=== PATIENT | female | born 1985 | race American Indian/Alaskan Native ===

== ENCOUNTER 2017-05-30 23:03 | Emergency (ER) | payer OTHER ==
[2017-05-31 00:38] LABS: Basophils % (Auto) 0.3 % (0.0-1.8); Eosinophils % (Auto) 1.2 % (0.0-4.3); Hematocrit 37.2 % (30.3-42.9); Hemoglobin 11.6 gm/dl (10.1-14.3); Mean Corpuscular HGB Conc 31 % (30-34); Platelet Count 235 K/mm3 (140-440); Red Blood Count 5.41 M/mm3 (3.65-5.03); Red Cell Distribution Width 16.3 % (13.2-15.2); White Blood Count 7.6 K/mm3 (4.5-11.0)
[2017-05-31 00:40] LABS: Mean Corpuscular Hemoglobin 22 pg (28-32); Mean Corpuscular Volume 69 fl (79-97)
[2017-05-31 00:57] LABS: Anion Gap 21 mmol/L; BUN/Creatinine Ratio 11.66; Blood Urea Nitrogen 7 mg/dL (7-17); Calcium 9.3 mg/dL (8.4-10.2); Carbon Dioxide 23 mmol/L (22-30); Chloride 101.2 mmol/L (98-107); Glucose 94 mg/dL (65-100); Potassium 3.7 mmol/L (3.6-5.0); Sodium 141 mmol/L (137-145)
[2017-05-31 03:41] VITALS: BP 183/96
--- NOTE | 2017-06-02 00:28 | ED Elopement Review ---
ED Pt Elopement review - Results review Lab results: Laboratory Tests 05/31/17 05/31/17 05/31/17 00:20 00:20 00:20 WBC 7.6 RBC 5.41 H Hgb 11.6 Hct 37.2 MCV 69 L MCH 22 L MCHC 31 RDW 16.3 H Plt Count 235 Lymph % (Auto) 38.6 H O'Brien % (Auto) 5.4 Eos % (Auto) 1.2 Baso % (Auto) 0.3 Lymph # 2.9 O'Brien # 0.4 Eos # 0.1 Baso # 0.0 Seg Neutrophils % 54.5 Seg Neutrophils # 4.1 Sodium 141 Potassium 3.7 Chloride 101.2 Carbon Dioxide 23 Anion Gap 21 BUN 7 Creatinine 0.6 L Estimated GFR > 60 BUN/Creatinine Ratio 11.66 Glucose 94 Calcium 9.3 HCG, Qual Negative - Call Back decision Pt Call Back Decision: Pt to F/U with PMD
== END 2017-05-31 05:03 | disposition left against medical advice (07) ==
LOC: ED 23:03
DX: R42 Dizziness and giddiness (principal); Z53.21 Procedure and treatment not carried out due to patient leaving prior to being seen by health care provider
CPT/HCPCS: 36415; 80048; 84703; 85025; 93005; 93010

== ENCOUNTER 2019-07-01 16:09 | Emergency (ER) | payer OTHER ==
[2019-07-01 18:15] LABS: Hematocrit 39.5 % (30.3-42.9); Hemoglobin 12.9 gm/dl (10.1-14.3); Mean Corpuscular HGB Conc 33 % (30-34); Platelet Count 259 K/mm3 (140-440); Red Blood Count 5.72 M/mm3 (3.65-5.03); Red Cell Distribution Width 16.7 % (13.2-15.2)
[2019-07-01 18:28] LABS: Mean Corpuscular Volume 69 fl (79-97)
[2019-07-01 18:29] LABS: Alanine Aminotransferase 19 units/L (7-56); Albumin 4.7 g/dL (3.9-5); BUN/Creatinine Ratio 25; Blood Urea Nitrogen 10 mg/dL (7-17); Calcium 9.6 mg/dL (8.4-10.2); Hemolysis Index 29
[2019-07-01 19:23] LABS: Bilirubin,Urine NEG (Negative); Blood,Urine NEG (Negative); Color,Urine Yellow (Yellow); Mucus,Urine FEW /HPF; Urobilinogen,Urine < 2.0 mg/dL (<2.0)
[2019-07-01] MEDS ORDERED: diphenhydrAMINE 50 MG/ML VIAL IV ONE (20:37)
[2019-07-01] MEDS ORDERED: ONDANSETRON 4 MG/2 ML INJ IV ONE (20:37)
[2019-07-01] MEDS ORDERED: SODIUM CHLORIDE 0.9% 1000 ML 1,000 ML IV ONE (20:37)
[2019-07-01] MEDS ORDERED: METOCLOPRAMIDE 10 MG/2 ML INJ IV ONE (20:37)
[2019-07-01 21:29] LABS: Band Neutrophils # (Manual) 0.1 K/mm3; Eosinophils % (Manual) 0 % (0.0-4.3); Hypochromasia 1+; Total Cells Counted 100
[2019-07-01 21:30] LABS: Poikilocytosis Few
[2019-07-01] MEDS ORDERED: HALOPERIDOL LACTATE 5 MG/1 ML INJ IM ONE (22:15)
--- NOTE | 2019-07-01 22:25 | Emergency Department Report ---
ED General Adult HPI - General Chief complaint: Nausea/Vomiting/Diarrhea Stated complaint: VOMITING X3DAYS Time Seen by Provider: 07/01/19 20:19 Source: patient Mode of arrival: Ambulatory Limitations: No Limitations - History of Present Illness Initial comments: The patient presents to the emergency department with a chief complaint of nausea and vomiting for the last 2-3 months that has gotten worse over the last [address] Wright as a customer success associate and was told to come to the ED per to patient for further evaluation and GI workup. Patient states she just recently established a relationship with her customer success associate has not had any procedures done yet. Patient is on Reglan at home to no avail. Patient denies abdominal pain, shortness of breath, or chest pain. -: Gradual Severity scale (0 -10): 0 Consistency: constant Improves with: none Worsens with: none Associated Symptoms: denies other symptoms Treatments Prior to Arrival: none - Related Data Home Medications Medication Instructions Recorded Confirmed Last Taken Methyldopa [Aldomet] 250 mg PO QDAY 12/05/14 12/05/14 12/05/14 08:00 Previous Rx's Medication Instructions Recorded Last Taken Type glyBURIDE [Diabeta] 10 mg PO BID #120 tablet 06/14/14 12/05/14 08:00 Rx metFORMIN [Glucophage] 1,000 mg PO BID #120 tablet 06/14/14 12/05/14 08:00 Rx Promethazine /Codeine 5 ml PO Q6H PRN #50 ml 12/05/14 Unknown Rx [Phenergan/Codeine 6.25-10 mg/5 ml] Ondansetron [Zofran Odt] 4 mg PO Q4HR PRN #20 tab.rapdis 07/01/19 Unknown Rx Promethazine [Phenergan TAB] 25 mg PO Q6HR PRN #20 tab 07/01/19 Unknown Rx Allergies Allergy/AdvReac Type Severity Reaction Status Date / Time No Known Allergies Allergy Verified 12/05/14 13:51 ED Review of Systems ROS: Stated complaint: VOMITING X3DAYS Other details as noted in HPI Comment: All other systems reviewed and negative Constitutional: denies: chills, fever Eyes: denies: eye pain, eye discharge, vision change ENT: denies: ear pain, throat pain Respiratory: denies: cough, shortness of breath, wheezing Cardiovascular: denies: chest pain, palpitations Endocrine: no symptoms reported Gastrointestinal: denies: abdominal pain, nausea, diarrhea Genitourinary: denies: urgency, dysuria, discharge Musculoskeletal: denies: back pain, joint swelling, arthralgia Skin: denies: rash, lesions Neurological: denies: headache, weakness, paresthesias Psychiatric: denies: anxiety, depression Hematological/Lymphatic: denies: easy bleeding, easy bruising ED Past Medical Hx - Past Medical History Hx Hypertension: Yes Hx Diabetes: Yes Additional medical history: PCOS - Surgical History Additional Surgical History: tonsillectomy - Social History Smoking Status: Never Smoker Substance Use Type: Marijuana - Medications Home Medications: Home Medications Medication Instructions Recorded Confirmed Last Taken Type glyBURIDE [Diabeta] 10 mg PO BID #120 tablet 06/14/14 12/05/14 12/05/14 08:00 Rx metFORMIN [Glucophage] 1,000 mg PO BID #120 tablet 06/14/14 12/05/14 12/05/14 08:00 Rx Methyldopa [Aldomet] 250 mg PO QDAY 12/05/14 12/05/14 12/05/14 08:00 History Promethazine /Codeine 5 ml PO Q6H PRN #50 ml 12/05/14 Unknown Rx [Phenergan/Codeine 6.25-10 mg/5 ml] Ondansetron [Zofran Odt] 4 mg PO Q4HR PRN #20 tab.rapdis 07/01/19 Unknown Rx Promethazine [Phenergan TAB] 25 mg PO Q6HR PRN #20 tab 07/01/19 Unknown Rx ED Physical Exam - General Limitations: No Limitations General appearance: alert, in no apparent distress - Head Head exam: Present: atraumatic, normocephalic - Eye Eye exam: Present: normal appearance, PERRL, EOMI - ENT ENT exam: Present: mucous membranes moist - Neck Neck exam: Present: normal inspection - Respiratory Respiratory exam: Present: normal lung sounds bilaterally. Absent: respiratory distress - Cardiovascular Cardiovascular Exam: Present: regular rate, normal rhythm. Absent: systolic murmur, diastolic murmur, rubs, gallop - GI/Abdominal GI/Abdominal exam: Present: soft, normal bowel sounds. Absent: distended, tenderness - Extremities Exam Extremities exam: Present: normal inspection - Back Exam Back exam: Present: normal inspection - Neurological Exam Neurological exam: Present: alert, oriented X3, CN II-XII intact. Absent: motor sensory deficit - Psychiatric Psychiatric exam: Present: normal affect, normal mood - Skin Skin exam: Present: warm, dry, intact, normal color. Absent: rash ED Course Vital Signs 07/01/19 07/01/19 07/01/19 16:22 16:46 19:34 Temperature 98.3 F 98.3 F Pulse Rate 85 95 H Respiratory 20 20 Rate Blood Pressure 198/120 222/109 Blood Pressure 198/120 [Right] O2 Sat by Pulse 95 98 Oximetry 07/01/19 07/01/19 07/01/19 20:30 20:45 21:30 Temperature 98.3 F Pulse Rate 88 89 94 H Respiratory 22 25 H 26 H Rate Blood Pressure 173/87 166/97 Blood Pressure 214/110 [Right] O2 Sat by Pulse 99 100 100 Oximetry ED Medical Decision Making - Lab Data Result diagrams: 07/01/19 18:01 07/01/19 18:01 Lab Results 07/01/19 07/01/19 07/01/19 Range/Units 16:35 18:01 18:01 WBC 10.7 (4.5-11.0) K/mm3 RBC 5.72 H (3.65-5.03) M/mm3 Hgb 12.9 (10.1-14.3) gm/dl Hct 39.5 (30.3-42.9) % MCV 69 L (79-97) fl MCH 23 L (28-32) pg MCHC 33 (30-34) % RDW 16.7 H (13.2-15.2) % Plt Count 259 (140-440) K/mm3 Add Manual Diff Complete Total Counted 100 Seg Neutrophils % Pedigree Researcher Seg Neuts % (Manual) 90.0 H (40.0-70.0) % Band Neutrophils % 1.0 % Lymphocytes % (Manual) 7.0 L (13.4-35.0) % Reactive Lymphs % (Man) 0 % Monocytes % (Manual) 1.0 (0.0-7.3) % Eosinophils % (Manual) 0 (0.0-4.3) % Basophils % (Manual) 1.0 (0.0-1.8) % Metamyelocytes % 0 % Myelocytes % 0 % Promyelocytes % 0 % Blast Cells % 0 % Nucleated RBC % Not Reportable Seg Neutrophils # Man 9.6 H (1.8-7.7) K/mm3 Band Neutrophils # 0.1 K/mm3 Lymphocytes # (Manual) 0.7 L (1.2-5.4) K/mm3 Abs React Lymphs (Man) 0.0 K/mm3 Monocytes # (Manual) 0.1 (0.0-0.8) K/mm3 Eosinophils # (Manual) 0.0 (0.0-0.4) K/mm3 Basophils # (Manual) 0.1 (0.0-0.1) K/mm3 Metamyelocytes # 0.0 K/mm3 Myelocytes # 0.0 K/mm3 Promyelocytes # 0.0 K/mm3 Blast Cells # 0.0 K/mm3 WBC Morphology Not Reportable Hypersegmented Neuts Not Reportable Hyposegmented Neuts Not Reportable Hypogranular Neuts Not Reportable Smudge Cells Not Reportable Toxic Granulation Not Reportable Toxic Vacuolation Not Reportable Dohle Bodies Not Reportable Pelger-Huet Anomaly Not Reportable Heike Rods Not Reportable Platelet Estimate Appears normal Clumped Platelets Not Reportable Plt Clumps, EDTA Not Reportable Large Platelets Not Reportable Giant Platelets Not Reportable Platelet Satelliting Not Reportable Plt Morphology Comment Not Reportable RBC Morphology Not Reportable Dimorphic RBCs Not Reportable Polychromasia Not Reportable Hypochromasia 1+ Poikilocytosis Few Anisocytosis Not Reportable Microcytosis 2+ Macrocytosis Not Reportable Spherocytes Not Reportable Pappenheimer Bodies Not Reportable Sickle Cells Not Reportable Target Cells Not Reportable Tear Drop Cells Not Reportable Ovalocytes Not Reportable Helmet Cells Not Reportable Ashraf-Chloride Bodies Not Reportable [place] Rings Not Reportable [place] Cells Not Reportable Bite Cells Not Reportable Crenated Cell Not Reportable Elliptocytes Not Reportable Acanthocytes (Spur) Not Reportable Rouleaux Not Reportable Hemoglobin C Crystals Not Reportable Schistocytes Not Reportable Malaria parasites Not Reportable Slava Bodies Not Reportable Hem Pathologist Commnt No Sodium 139 (137-145) mmol/L Potassium 4.8 (3.6-5.0) mmol/L Chloride 96.5 L (98-107) mmol/L Carbon Dioxide 22 (22-30) mmol/L Anion Gap 25 mmol/L BUN 10 (7-17) mg/dL Creatinine 0.4 L (0.7-1.2) mg/dL Estimated GFR > 60 ml/min BUN/Creatinine Ratio 25 % Glucose 360 H (65-100) mg/dL POC Glucose 362 H (70-105) Calcium 9.6 (8.4-10.2) mg/dL Total Bilirubin 1.00 (0.1-1.2) mg/dL AST 14 (5-40) units/L ALT 19 (7-56) units/L Alkaline Phosphatase 104 (35-129) units/L Total Protein 8.5 H (6.3-8.2) g/dL Albumin 4.7 (3.9-5) g/dL Albumin/Globulin Ratio 1.2 % Lipase 8 L (13-60) units/L HCG, Qual (Negative) Urine Color (Yellow) Urine Turbidity (Clear) Urine pH (5.0-7.0) Ur Specific [place] (1.003-1.030) Urine Protein (Negative) mg/dL Urine Glucose (UA) (Negative) mg/dL Urine Ketones (Negative) mg/dL Urine Blood (Negative) Urine Nitrite (Negative) Urine Bilirubin (Negative) Urine Urobilinogen (<2.0) mg/dL Ur Leukocyte Esterase (Negative) Urine WBC (Auto) (0.0-6.0) /HPF Urine RBC (Auto) (0.0-6.0) /HPF U Epithel Cells (Auto) (0-13.0) /HPF Urine Mucus /HPF 07/01/19 07/01/19 07/01/19 Range/Units 18:01 21:06 Unknown WBC (4.5-11.0) K/mm3 RBC (3.65-5.03) M/mm3 Hgb (10.1-14.3) gm/dl Hct (30.3-42.9) % MCV (79-97) fl MCH (28-32) pg MCHC (30-34) % RDW (13.2-15.2) % Plt Count (140-440) K/mm3 Add Manual Diff Total Counted Seg Neutrophils % Seg Neuts % (Manual) (40.0-70.0) % Band Neutrophils % % Lymphocytes % (Manual) (13.4-35.0) % Reactive Lymphs % (Man) % Monocytes % (Manual) (0.0-7.3) % Eosinophils % (Manual) (0.0-4.3) % Basophils % (Manual) (0.0-1.8) % Metamyelocytes % % Myelocytes % % Promyelocytes % % Blast Cells % % Nucleated RBC % Seg Neutrophils # Man (1.8-7.7) K/mm3 Band Neutrophils # K/mm3 Lymphocytes # (Manual) (1.2-5.4) K/mm3 Abs React Lymphs (Man) K/mm3 Monocytes # (Manual) (0.0-0.8) K/mm3 Eosinophils # (Manual) (0.0-0.4) K/mm3 Basophils # (Manual) (0.0-0.1) K/mm3 Metamyelocytes # K/mm3 Myelocytes # K/mm3 Promyelocytes # K/mm3 Blast Cells # K/mm3 WBC Morphology Hypersegmented Neuts Hyposegmented Neuts Hypogranular Neuts Smudge Cells Toxic Granulation Toxic Vacuolation Dohle Bodies Pelger-Huet Anomaly Heike Rods Platelet Estimate Clumped Platelets Plt Clumps, EDTA Large Platelets Giant Platelets Platelet Satelliting Plt Morphology Comment RBC Morphology Dimorphic RBCs Polychromasia Hypochromasia Poikilocytosis Anisocytosis Microcytosis Macrocytosis Spherocytes Pappenheimer Bodies Sickle Cells Target Cells Tear Drop Cells Ovalocytes Helmet Cells Ashraf-Chloride Bodies [place] Rings [place] Cells Bite Cells Crenated Cell Elliptocytes Acanthocytes (Spur) Rouleaux Hemoglobin C Crystals Schistocytes Malaria parasites Slava Bodies Hem Pathologist Commnt Sodium (137-145) mmol/L Potassium (3.6-5.0) mmol/L Chloride (98-107) mmol/L Carbon Dioxide (22-30) mmol/L Anion Gap mmol/L BUN (7-17) mg/dL Creatinine (0.7-1.2) mg/dL Estimated GFR ml/min BUN/Creatinine Ratio % Glucose (65-100) mg/dL POC Glucose 337 H (70-105) Calcium (8.4-10.2) mg/dL Total Bilirubin (0.1-1.2) mg/dL AST (5-40) units/L ALT (7-56) units/L Alkaline Phosphatase (35-129) units/L Total Protein (6.3-8.2) g/dL Albumin (3.9-5) g/dL Albumin/Globulin Ratio % Lipase (13-60) units/L HCG, Qual Negative (Negative) Urine Color Yellow (Yellow) Urine Turbidity Clear (Clear) Urine pH 6.0 (5.0-7.0) Ur Specific [place] 1.036 H (1.003-1.030) Urine Protein 100 mg/dl (Negative) mg/dL Urine Glucose (UA) >=500 (Negative) mg/dL Urine Ketones 80 (Negative) mg/dL Urine Blood Neg (Negative) Urine Nitrite Neg (Negative) Urine Bilirubin Neg (Negative) Urine Urobilinogen < 2.0 (<2.0) mg/dL Ur Leukocyte Esterase Neg (Negative) Urine WBC (Auto) 1.0 (0.0-6.0) /HPF Urine RBC (Auto) 1.0 (0.0-6.0) /HPF U Epithel Cells (Auto) 1.0 (0-13.0) /HPF Urine Mucus Few /HPF - Radiology Data Radiology results: report reviewed - Medical Decision Making Discussed results with patient sx improved after [facility] Critical care attestation.: If time is entered above; I have spent that time in minutes in the direct care of this critically ill patient, excluding procedure time. ED Disposition Clinical Impression: Nausea & vomiting Disposition: DC-01 TO HOME OR SELFCARE Is pt being admited?: No Does the pt Need Aspirin: No Condition: Stable Instructions: Acute Nausea and Vomiting (ED) Additional Instructions: return if worse Referrals: TREVA AYOUB MD [Primary Care Provider] - 3-5 Days MEL SALES MD [Staff Physician] - 3-5 Days Time of Disposition: 22:22
[2019-07-01 22:32] VITALS: BP 163/83
== END 2019-07-01 23:00 | disposition home or self-care (01) ==
LOC: ED 16:09
DX: R11.2 Nausea with vomiting, unspecified (principal); I10 Essential (primary) hypertension; E11.9 Type 2 diabetes mellitus without complications; F12.10 Cannabis abuse, uncomplicated; Z90.89 Acquired absence of other organs; Z79.899 Other long term (current) drug therapy
CPT/HCPCS: 36415; 80053; 81001; 82962; 83690; 84703; 85007; 85025; 93005; 93010; 96361; 96372; 96374; 96375; 99283; J1200; J1630; J2405; J2765; J7030

== ENCOUNTER 2020-06-13 11:29 | Emergency (ER) | payer SELFPAY ==
[2020-06-13] MEDS ORDERED: MORPHINE 2 MG/1 ML INJ IV ONE (11:53)
[2020-06-13] MEDS ORDERED: ONDANSETRON 4 MG/2 ML INJ IV ONE (11:53)
[2020-06-13 12:15] LABS: Eosinophils % (Auto) 0.5 % (0.0-4.3); Monocytes # (Auto) 0.4 K/mm3 (0.0-0.8); Monocytes % (Auto) 6.2 % (0.0-7.3)
[2020-06-13 12:26] LABS: INR 0.95 (0.87-1.13)
[2020-06-13 12:27] LABS: Partial Thromboplastin Time 20.1 Sec. (24.2-36.6)
[2020-06-13] MEDS ORDERED: HYDROmorphone 1 MG/1 ML INJ IV ONE ×2 (12:29→12:34)
[2020-06-13 12:35] LABS: Blood Urea Nitrogen 12 mg/dL (7-17); Hematocrit 31.4 % (30.3-42.9); Hemoglobin 10.2 gm/dl (10.1-14.3); Hemolysis Index 17; Mean Corpuscular Volume 70 fl (79-97); Red Blood Count 4.47 M/mm3 (3.65-5.03)
[2020-06-13 12:36] LABS: Mean Corpuscular HGB Conc 33 % (30-34); Red Cell Distribution Width 16.5 % (13.2-15.2)
[2020-06-13 12:37] LABS: Basophils % (Auto) 0.5 % (0.0-1.8); Lymphocytes # (Auto) 1.8 K/mm3 (1.2-5.4); Lymphocytes % (Auto) 29.8 % (13.4-35.0); Platelet Count 184 K/mm3 (140-440)
[2020-06-13 12:38] LABS: BUN/Creatinine Ratio 30
--- NOTE | 2020-06-13 13:07 | Cat Scan Report ---
CT head without contrast INDICATION : MAIN. Headache with no injury TECHNIQUE: Axial imaging performed from the skull apex through the skull base without the use of con trast. All CT scans at this location are performed using CT dose reduction for ALARA by means of aut omated exposure control. COMPARISON: CT head from 01/03/2020 FINDINGS: Parenchyma: No acute intracranial hemorrhage or parenchymal abnormality. Ventricles: Ventricles are normal in size and appear symmetric. Soft tissues: Soft tissues including the orbits appear normal. Bones: No acute osseous abnormality. Sinuses: Sinuses and mastoid air cells are clear. IMPRESSION: No acute abnormality. Signer Name: Reno Man MD Signed: 06/13/2020 1:02 PM Workstation Name: [id number]
--- NOTE | 2020-06-13 14:07 | Emergency Department Report ---
ED Headache HPI - General Chief Complaint: Headache Stated Complaint: HEADACHE Time Seen by Provider: 06/13/20 11:46 - History of Present Illness Initial Comments: This is a 35-year-old female who states that she has had a headache today. She states she has never had severe headaches before. She describes as throbbing left-sided. Apparently occurred while she was asleep. Patient told me specifically that she never had a CT of her head before when I asked him specific question. However, the record indicates that she had a CT of her head in December 2019 and another here in 2014. Patient denies neck pain or stiffness. He states he has had no photophobia or photosensitivity. He does not complain of nausea or vomiting. She states that she did take her labetalol for her blood pressure this morning which she takes twice a day. She states that she has been recently compliant. She admits to history of diabetic gastroparesis. Apparently she has been at this facility with multiple other pain related complaints. Patient denies a family history of aneurysm or migraine headache. She denies any personal history of the same or previous stroke. Does have a history of diabetes and hypertension. Timing/Duration: 4-6 hours Quality: moderate, severe Head Injury Location: frontal (Left-sided) Recent Head Trauma: no recent headache/trauma Modifying Factors: worse with: cold therapy, exposure to light, immobilization, medication, movement, rest, other Associated Symptoms: denies: denies symptoms, confusion, fatigue, facial pain, fever/chills, flushing, loss of consciousness, nausea/vomiting, nasal congestion, nasal drainage, numbness in legs/feet, rash, seizures, sinus infection, stiff neck, vision changes, weakness, other Allergies/Adverse Reactions: Allergies No Known Allergies Allergy (Verified 12/05/14 13:51) Home Medications: Ambulatory Orders glyBURIDE [Diabeta] 10 mg PO BID #120 tablet 06/14/14 metFORMIN [Glucophage] 1,000 mg PO BID #120 tablet 06/14/14 Methyldopa [Aldomet] 250 mg PO QDAY 12/05/14 Promethazine /Codeine [Phenergan/Codeine 6.25-10 mg/5 ml] 5 ml PO Q6H PRN #50 ml 12/05/14 Ondansetron [Zofran Odt] 4 mg PO Q4HR PRN #20 tab.rapdis 07/01/19 Promethazine [Phenergan TAB] 25 mg PO Q6HR PRN #20 tab 07/01/19 Butalb/Acetamin/Caff 50-325-40 [Fioricet 50-325-40] 1 tab PO Q6HR PRN #10 tab 06/13/20 Lisinopril/Hydrochlorothiazide [Zestoretic 20-12.5 mg] 1 each PO QDAY #30 tablet 06/13/20 ED Review of Systems ROS: Stated complaint: HEADACHE Other details as noted in HPI Constitutional: denies: chills, fever Eyes: denies: eye pain, eye discharge, vision change ENT: denies: ear pain, throat pain Respiratory: denies: cough, shortness of breath Cardiovascular: denies: chest pain, palpitations Endocrine: no symptoms reported Gastrointestinal: denies: abdominal pain, vomiting Genitourinary: denies: urgency, dysuria Musculoskeletal: denies: back pain, arthralgia Skin: denies: rash, lesions Neurological: denies: headache, weakness, numbness, paresthesias, confusion Psychiatric: denies: anxiety, depression Hematological/Lymphatic: denies: easy bleeding, easy bruising ED Past Medical Hx - Past Medical History Hx Hypertension: Yes Hx Diabetes: Yes Additional medical history: PCOS - Surgical History Additional Surgical History: tonsillectomy - Social History Smoking Status: Unknown if ever smoked - Medications Home Medications: Home Medications Medication Instructions Recorded Confirmed Last Taken Type glyBURIDE [Diabeta] 10 mg PO BID #120 tablet 06/14/14 12/05/14 12/05/14 08:00 Rx metFORMIN [Glucophage] 1,000 mg PO BID #120 tablet 06/14/14 12/05/14 12/05/14 08:00 Rx Methyldopa [Aldomet] 250 mg PO QDAY 12/05/14 12/05/14 12/05/14 08:00 History Promethazine /Codeine 5 ml PO Q6H PRN #50 ml 12/05/14 Unknown Rx [Phenergan/Codeine 6.25-10 mg/5 ml] Ondansetron [Zofran Odt] 4 mg PO Q4HR PRN #20 tab.rapdis 07/01/19 Unknown Rx Promethazine [Phenergan TAB] 25 mg PO Q6HR PRN #20 tab 07/01/19 Unknown Rx Butalb/Acetamin/Caff 50-325-40 1 tab PO Q6HR PRN #10 tab 06/13/20 Unknown Rx [Fioricet 50-325-40] Lisinopril/Hydrochlorothiazide 1 each PO QDAY #30 tablet 06/13/20 Unknown Rx [Zestoretic 20-12.5 mg] ED Physical Exam - General Limitations: No Limitations General appearance: alert, in no apparent distress - Head Head exam: Present: atraumatic, normocephalic - Eye Eye exam: Present: normal appearance, PERRL, EOMI. Absent: scleral icterus - ENT ENT exam: Present: mucous membranes moist - Neck Neck exam: Present: normal inspection. Absent: tenderness, meningismus - Respiratory Respiratory exam: Present: normal lung sounds bilaterally. Absent: respiratory distress - Cardiovascular Cardiovascular Exam: Present: regular rate, normal rhythm. Absent: systolic murmur, diastolic murmur, rubs, gallop - GI/Abdominal GI/Abdominal exam: Present: soft, normal bowel sounds. Absent: distended, tenderness, guarding, rebound, rigid - Extremities Exam Extremities exam: Present: normal inspection - Back Exam Back exam: Present: normal inspection - Neurological Exam Neurological exam: Present: alert, oriented X3, CN II-XII intact. Absent: motor sensory deficit - Psychiatric Psychiatric exam: Present: normal affect, normal mood - Skin Skin exam: Present: warm, dry, intact, normal color. Absent: rash ED Course Vital Signs 06/13/20 06/13/20 06/13/20 11:34 12:05 12:06 Pulse Rate 80 90 Respiratory 20 16 Rate Blood Pressure 228/122 Blood Pressure 210/110 [Left] O2 Sat by Pulse 98 Oximetry 06/13/20 06/13/20 06/13/20 12:27 12:45 13:06 Pulse Rate 88 88 Respiratory 18 Rate Blood Pressure 212/110 192/114 Blood Pressure [Left] O2 Sat by Pulse Oximetry - Reevaluation(s) Reevaluation #1: Patient was found to be in no distress. She responded to analgesia. Her headache was not unretractable. She had no signs of meningismus. She had no signs of focal neurological deficit. Her NIH stroke score was 0. Was a bit difficult to reconcile her voiced history of no prior CT to the medical record. Her blood pressure improved as well as her headache. I do not see an indication for further imaging or diagnostic studies at this time. Patient is referred to a local neurologist. She is appropriate for outpatient disposition. 06/13/20 14:05 Reevaluation #2: Exam improved and neurologically intact, blood pressure basically about normotensive. 06/13/20 14:10 06/13/20 14:11 ED Medical Decision Making - Lab Data Result diagrams: 06/13/20 11:53 06/13/20 11:53 Laboratory Results - last 24 hr 06/13/20 06/13/20 06/13/20 11:53 11:53 11:53 WBC 5.9 RBC 4.47 Hgb 10.2 Hct 31.4 MCV 70 L MCH 23 L MCHC 33 RDW 16.5 H Plt Count 184 Lymph % (Auto) 29.8 [place] % (Auto) 6.2 Eos % (Auto) 0.5 Baso % (Auto) 0.5 Lymph # 1.8 [place] # 0.4 Eos # 0.0 Baso # 0.0 Seg Neutrophils % 63.0 Seg Neutrophils # 3.7 PT 12.9 INR 0.95 APTT 20.1 L Sodium 139 Potassium 3.9 Chloride 103.1 Carbon Dioxide 21 L Anion Gap 19 BUN 12 Creatinine 0.4 L Estimated GFR > 60 BUN/Creatinine Ratio 30 Glucose 124 H Calcium 9.0 HCG, Qual 06/13/20 13:10 WBC RBC Hgb Hct MCV MCH MCHC RDW Plt Count Lymph % (Auto) [place] % (Auto) Eos % (Auto) Baso % (Auto) Lymph # [place] # Eos # Baso # Seg Neutrophils % Seg Neutrophils # PT INR APTT Sodium Potassium Chloride Carbon Dioxide Anion Gap BUN Creatinine Estimated GFR BUN/Creatinine Ratio Glucose Calcium HCG, Qual Negative - Radiology Data Radiology results: report reviewed, image reviewed CT the head was normal per radiologist. Critical care attestation.: If time is entered above; I have spent that time in minutes in the direct care of this critically ill patient, excluding procedure time. ED Disposition Clinical Impression: Accelerated hypertension Cephalalgia Qualifiers: Headache type: unspecified Headache chronicity pattern: acute headache Intractability: not intractable Qualified Code(s): R51 - Headache Disposition: DC-01 TO HOME OR SELFCARE Is pt being admited?: No Does the pt Need Aspirin: No Condition: Stable Instructions: Hypertension (ED), Acute Headache (ED) Additional Instructions: Return any acute change or problem. Continue your labetalol. Rx lisinopril. Fioricet for headache as needed. Follow-up with your primary care physician and neurologist. Prescriptions: Butalb/Acetamin/Caff 50-325-40 [Fioricet 50-325-40] 1 tab PO Q6HR PRN #10 tab PRN Reason: Headache Lisinopril/Hydrochlorothiazide [Zestoretic 20-12.5 mg] 1 each PO QDAY #30 tablet Referrals: PRIMARY CAREMD [Primary Care Provider] - 3-5 Days THEODORE SUN MD [Referring] - 2-3 Days Time of Disposition: 14:13
[2020-06-13 18:40] VITALS: BP 124/76
== END 2020-06-13 17:00 | disposition home or self-care (01) ==
LOC: ED 11:29
DX: I10 Essential (primary) hypertension (principal); E11.9 Type 2 diabetes mellitus without complications; Z79.899 Other long term (current) drug therapy
CPT/HCPCS: 36415; 70450; 80048; 84703; 85025; 85610; 85730; 96374; 96375; 96376; 99284; J1170; J2270; J2405

== ENCOUNTER 2020-08-11 15:26 | Emergency (ER) | payer SELFPAY ==
[2020-08-11 15:51] VITALS: BP 102/60
--- NOTE | 2020-08-11 15:53 | Event Note ---
ED Screening Note Date of service: 08/11/20 Time: 15:52 ED Screening Note: Patient complains of vaginal bleeding and lower abdominal pain in Reports she is 7 weeks This initial assessment/diagnostic orders/clinical plan/treatment(s) is/are subject to change based on patients health status, clinical progression and re- assessment by fellow clinical providers in the ED. Further treatment and workup at subsequent clinical providers discretion. Patient/guardian urged not to elope from the ED as their condition may be serious if not clinically assessed and managed. Initial orders include: Labs Ultrasound
[2020-08-11 16:31] LABS: Basophils % (Auto) 0.3 % (0.0-1.8); Eosinophils % (Auto) 0.1 % (0.0-4.3); Hematocrit 33.6 % (30.3-42.9); Hemoglobin 10.9 gm/dl (10.1-14.3); Lymphocytes # (Auto) 1.9 K/mm3 (1.2-5.4); Lymphocytes % (Auto) 29.1 % (13.4-35.0); Mean Corpuscular HGB Conc 32 % (30-34); Mean Corpuscular Volume 72 fl (79-97); Monocytes # (Auto) 0.5 K/mm3 (0.0-0.8); Platelet Count 199 K/mm3 (140-440); Red Blood Count 4.64 M/mm3 (3.65-5.03); Red Cell Distribution Width 16.9 % (13.2-15.2)
[2020-08-11 16:43] LABS: Alanine Aminotransferase 7 units/L (7-56); Albumin 4.2 g/dL (3.9-5); Blood Urea Nitrogen 12 mg/dL (7-17); Calcium 9.6 mg/dL (8.4-10.2); Hemolysis Index 4
[2020-08-11 16:47] LABS: BUN/Creatinine Ratio 17
--- NOTE | 2020-08-11 17:08 | Ultrasound Report ---
US OB <= 14 weeks fetus INDICATION / CLINICAL INFORMATION: vaginal bleeding and pain, 7 weeks. COMPARISON: None available. FINDINGS: A single fetus is seen in the uterus with heart rate of 127. Gestational sac diameter is 26 mm equaling 7 weeks 4 days gestational age. Zinc-rump length is 12 mm equaling 7 weeks 3 days gestation al age. Right ovary was not visualized. The left ovary is normal. IMPRESSION: Single fetus in the uterus with heart rate of 127 and estimated gestational age of 7 weeks 4 da ys Signer Name: George Vidal MD FACR Signed: 08/11/2020 5:05 PM Workstation Name: [id number]
--- NOTE | 2020-08-11 19:36 | Emergency Department Report ---
ED HPI - General Chief complaint: Vaginal Bleeding Stated complaint: POSSIBLE MISCARRIAGE Time Seen by Provider: 08/11/20 15:49 Source: patient Mode of arrival: Ambulatory Limitations: No Limitations - History of Present Illness Initial comments: 35-year-old -Cro[place] female patient presents with complaints of lower abdominal cramping pain and vaginal bleeding during . She states she is 7 weeks and denies any dysuria/hematuria, urinary frequency, nausea/vomiting/diarrhea/constipation, or fever/chills/sweats. Patient states she is not currently following with an STAFFING AND SCHEDULING COORDINATOR - Related Data Home Medications Medication Instructions Recorded Confirmed Last Taken Methyldopa [Aldomet] 250 mg PO QDAY 12/05/14 12/05/14 12/05/14 08:00 Previous Rx's Medication Instructions Recorded Last Taken Type glyBURIDE [Diabeta] 10 mg PO BID #120 tablet 06/14/14 12/05/14 08:00 Rx metFORMIN [Glucophage] 1,000 mg PO BID #120 tablet 06/14/14 12/05/14 08:00 Rx Promethazine /Codeine 5 ml PO Q6H PRN #50 ml 12/05/14 Unknown Rx [Phenergan/Codeine 6.25-10 mg/5 ml] Ondansetron [Zofran Odt] 4 mg PO Q4HR PRN #20 tab.rapdis 07/01/19 Unknown Rx Promethazine [Phenergan TAB] 25 mg PO Q6HR PRN #20 tab 07/01/19 Unknown Rx Butalb/Acetamin/Caff 50-325-40 1 tab PO Q6HR PRN #10 tab 06/13/20 Unknown Rx [Fioricet 50-325-40] Lisinopril/Hydrochlorothiazide 1 each PO QDAY #30 tablet 06/13/20 Unknown Rx [Zestoretic 20-12.5 mg] Allergies Allergy/AdvReac Type Severity Reaction Status Date / Time No Known Allergies Allergy Verified 12/05/14 13:51 ED Review of Systems ROS: Stated complaint: POSSIBLE MISCARRIAGE Other details as noted in HPI Constitutional: denies: chills, fever, malaise Respiratory: denies: cough, shortness of breath Cardiovascular: denies: chest pain Gastrointestinal: abdominal pain. denies: nausea, vomiting, diarrhea Genitourinary: denies: urgency, dysuria, frequency, discharge Skin: denies: rash, lesions Neurological: denies: headache, weakness Hematological/Lymphatic: denies: swollen glands ED Past Medical Hx - Past Medical History Previous Medical History?: Yes Hx Hypertension: Yes Hx Diabetes: Yes Additional medical history: PCOS - Surgical History Past Surgical History?: Yes Additional Surgical History: tonsillectomy - Social History Smoking Status: Unknown if ever smoked Substance Use Type: None - Medications Home Medications: Home Medications Medication Instructions Recorded Confirmed Last Taken Type glyBURIDE [Diabeta] 10 mg PO BID #120 tablet 06/14/14 12/05/14 12/05/14 08:00 Rx metFORMIN [Glucophage] 1,000 mg PO BID #120 tablet 06/14/14 12/05/14 12/05/14 08:00 Rx Methyldopa [Aldomet] 250 mg PO QDAY 12/05/14 12/05/14 12/05/14 08:00 History Promethazine /Codeine 5 ml PO Q6H PRN #50 ml 12/05/14 Unknown Rx [Phenergan/Codeine 6.25-10 mg/5 ml] Ondansetron [Zofran Odt] 4 mg PO Q4HR PRN #20 tab.rapdis 07/01/19 Unknown Rx Promethazine [Phenergan TAB] 25 mg PO Q6HR PRN #20 tab 07/01/19 Unknown Rx Butalb/Acetamin/Caff 50-325-40 1 tab PO Q6HR PRN #10 tab 06/13/20 Unknown Rx [Fioricet 50-325-40] Lisinopril/Hydrochlorothiazide 1 each PO QDAY #30 tablet 06/13/20 Unknown Rx [Zestoretic 20-12.5 mg] ED Physical Exam - General Limitations: No Limitations General appearance: alert, in no apparent distress, obese - Head Head exam: Present: atraumatic, normocephalic - Eye Eye exam: Absent: scleral icterus - Neck Neck exam: Present: normal inspection - Respiratory Respiratory exam: Absent: respiratory distress - Cardiovascular Cardiovascular Exam: Present: regular rate, normal rhythm - GI/Abdominal GI/Abdominal exam: Present: soft, normal bowel sounds. Absent: distended, tenderness, guarding, rebound, rigid - Extremities Exam Extremities exam: Present: normal inspection - Back Exam Back exam: Present: normal inspection - Neurological Exam Neurological exam: Present: alert, oriented X3 - Psychiatric Psychiatric exam: Present: normal affect, flat affect - Skin Skin exam: Present: warm, dry, intact, normal color. Absent: rash ED Course Vital Signs 08/11/20 15:50 Temperature 98.6 F Pulse Rate 73 Respiratory 16 Rate Blood Pressure 102/60 [Right] O2 Sat by Pulse 99 Oximetry ED Medical Decision Making - Lab Data Result diagrams: 08/11/20 16:05 08/11/20 16:05 Lab Results 08/11/20 08/11/20 08/11/20 Range/Units 16:05 16:05 16:05 WBC 6.6 (4.5-11.0) K/mm3 RBC 4.64 (3.65-5.03) M/mm3 Hgb 10.9 (10.1-14.3) gm/dl Hct 33.6 (30.3-42.9) % MCV 72 L (79-97) fl MCH 24 L (28-32) pg MCHC 32 (30-34) % RDW 16.9 H (13.2-15.2) % Plt Count 199 (140-440) K/mm3 Lymph % (Auto) 29.1 (13.4-35.0) % [place] % (Auto) 7.0 (0.0-7.3) % Eos % (Auto) 0.1 (0.0-4.3) % Baso % (Auto) 0.3 (0.0-1.8) % Lymph # (Auto) 1.9 (1.2-5.4) K/mm3 [place] # (Auto) 0.5 (0.0-0.8) K/mm3 Eos # (Auto) 0.0 (0.0-0.4) K/mm3 Baso # (Auto) 0.0 (0.0-0.1) K/mm3 Seg Neutrophils % 63.5 (40.0-70.0) % Seg Neutrophils # 4.2 (1.8-7.7) K/mm3 Sodium 136 L (137-145) mmol/L Potassium 3.4 L (3.6-5.0) mmol/L Chloride 101.8 (98-107) mmol/L Carbon Dioxide 21 L (22-30) mmol/L Anion Gap 17 mmol/L BUN 12 (7-17) mg/dL Creatinine 0.7 (0.6-1.2) mg/dL Estimated GFR > 60 ml/min BUN/Creatinine Ratio 17 % Glucose 172 H (65-100) mg/dL Calcium 9.6 (8.4-10.2) mg/dL Total Bilirubin 1.10 (0.1-1.2) mg/dL AST 8 (5-40) units/L ALT 7 (7-56) units/L Alkaline Phosphatase 77 (35-129) units/L Total Protein 7.8 (6.3-8.2) g/dL Albumin 4.2 (3.9-5) g/dL Albumin/Globulin Ratio 1.2 % HCG, Quant 76709 H (0-4) mIU/mL Urine Color (Yellow) Urine Turbidity (Clear) Urine pH (5.0-7.0) Ur Specific [place] (1.003-1.030) Urine Protein (Negative) mg/dL Urine Glucose (UA) (Negative) mg/dL Urine Ketones (Negative) mg/dL Urine Blood (Negative) Urine Nitrite (Negative) Urine Bilirubin (Negative) Urine Urobilinogen (<2.0) mg/dL Ur Leukocyte Esterase (Negative) Urine WBC (Auto) (0.0-6.0) /HPF Urine RBC (Auto) (0.0-6.0) /HPF U Epithel Cells (Auto) (0-13.0) /HPF Urine Bacteria (Auto) (Negative) /HPF Hyaline Casts /LPF Urine Mucus /HPF Blood Type 08/11/20 08/11/20 Range/Units 16:05 Unknown WBC (4.5-11.0) K/mm3 RBC (3.65-5.03) M/mm3 Hgb (10.1-14.3) gm/dl Hct (30.3-42.9) % MCV (79-97) fl MCH (28-32) pg MCHC (30-34) % RDW (13.2-15.2) % Plt Count (140-440) K/mm3 Lymph % (Auto) (13.4-35.0) % [place] % (Auto) (0.0-7.3) % Eos % (Auto) (0.0-4.3) % Baso % (Auto) (0.0-1.8) % Lymph # (Auto) (1.2-5.4) K/mm3 [place] # (Auto) (0.0-0.8) K/mm3 Eos # (Auto) (0.0-0.4) K/mm3 Baso # (Auto) (0.0-0.1) K/mm3 Seg Neutrophils % (40.0-70.0) % Seg Neutrophils # (1.8-7.7) K/mm3 Sodium (137-145) mmol/L Potassium (3.6-5.0) mmol/L Chloride (98-107) mmol/L Carbon Dioxide (22-30) mmol/L Anion Gap mmol/L BUN (7-17) mg/dL Creatinine (0.6-1.2) mg/dL Estimated GFR ml/min BUN/Creatinine Ratio % Glucose (65-100) mg/dL Calcium (8.4-10.2) mg/dL Total Bilirubin (0.1-1.2) mg/dL AST (5-40) units/L ALT (7-56) units/L Alkaline Phosphatase (35-129) units/L Total Protein (6.3-8.2) g/dL Albumin (3.9-5) g/dL Albumin/Globulin Ratio % HCG, Quant (0-4) mIU/mL Urine Color Kemi (Yellow) Urine Turbidity Slightly-cloudy (Clear) Urine pH 5.0 (5.0-7.0) Ur Specific [place] 1.033 H (1.003-1.030) Urine Protein 100 mg/dl (Negative) mg/dL Urine Glucose (UA) Neg (Negative) mg/dL Urine Ketones Tr (Negative) mg/dL Urine Blood Neg (Negative) Urine Nitrite Neg (Negative) Urine Bilirubin Neg (Negative) Urine Urobilinogen 2.0 (<2.0) mg/dL Ur Leukocyte Esterase Neg (Negative) Urine WBC (Auto) 6.0 (0.0-6.0) /HPF Urine RBC (Auto) 1.0 (0.0-6.0) /HPF U Epithel Cells (Auto) 26.0 H (0-13.0) /HPF Urine Bacteria (Auto) 1+ (Negative) /HPF Hyaline Casts 5 /LPF Urine Mucus 3+ /HPF Blood Type O POSITIVE - Radiology Data Radiology results: report reviewed US OB <= 14 weeks fetus INDICATION / CLINICAL INFORMATION: vaginal bleeding and pain, 7 weeks. COMPARISON: None available. FINDINGS: A single fetus is seen in the uterus with heart rate of 127. Gestational sac diameter is 26 mm equaling 7 weeks 4 days gestational age. Longfellow-rump length is 12 mm equaling 7 weeks 3 days gestational age. Right ovary was not visualized. The left ovary is normal. IMPRESSION: Single fetus in the uterus with heart rate of 127 and estimated gestational age of 7 weeks 4 days - Medical Decision Making 35-year-old -[place]at[place] female patient presents with complaints of lower abdominal cramping pain and vaginal bleeding during . She states she is 7 weeks and denies any dysuria/hematuria, urinary frequency, nausea/vomiting/diarrhea/constipation, or fever/chills/sweats. Patient states she is not currently following with an STAFFING AND SCHEDULING COORDINATOR Ultrasound shows IUP at 7 weeks 4 days and no other significant abnormalities. No significant abnormalities are noted on CBC or CMP. UA shows low amount of WBCs and 1+ bacteria. Patient denies urinary symptoms. Urine culture sent. Patient informed to follow-up on urine culture results in 3 days. Patient prov ided with STAFFING AND SCHEDULING COORDINATOR referral and informed to follow-up in 2 to 3 days. Strict return precautions were discussed in detail with patient who verbalizes understanding. Critical care attestation.: If time is entered above; I have spent that time in minutes in the direct care of this critically ill patient, excluding procedure time. ED Disposition Clinical Impression: Vaginal bleeding during Disposition: DC-01 TO HOME OR SELFCARE Is pt being admited?: No Condition: Stable Instructions: Threatened Miscarriage, Activity Restriction During Referrals: [facility] [Provider [facility]] - 2-3 Days Forms: Work/School Release Form(ED)
[2020-08-11 20:24] LABS: Bacteria,Urine 1+ /HPF (Negative); Bilirubin,Urine NEG (Negative); Blood,Urine NEG (Negative); Color,Urine Amber (Yellow); Hyaline Casts,Urine 5 /LPF; Mucus,Urine 3+ /HPF
== END 2020-08-11 23:00 | disposition home or self-care (01) ==
LOC: ED 15:26
DX: O20.8 Other hemorrhage in early pregnancy (principal); I10 Essential (primary) hypertension; E11.9 Type 2 diabetes mellitus without complications; E28.2 Polycystic ovarian syndrome; Z90.79 Acquired absence of other genital organ(s); Z79.899 Other long term (current) drug therapy; Z3A.01 Less than 8 weeks gestation of pregnancy
CPT/HCPCS: 36415; 76801; 80053; 81001; 84702; 85025; 86900; 86901; 87086

== ENCOUNTER 2020-10-20 11:28 | Inpatient (IN) | payer BC, MEDICAID ==
[2020-10-20] MEDS ORDERED: ONDANSETRON 4 MG/2 ML INJ ONE (12:03)
[2020-10-20] MEDS ORDERED: hydrALAZINE 20 MG/1 ML INJ ONE (12:03)
[2020-10-20] MEDS ORDERED: PROMETHAZINE 25 MG TAB PO PRN (12:28)
[2020-10-20] MEDS ORDERED: ACETAMINOPHEN 325 MG TAB PO PRN (12:28)
[2020-10-20] MEDS ORDERED: OXYTOCIN 10 UNIT/1 ML INJ IM PRN (12:28)
[2020-10-20] MEDS ORDERED: NalbUPHINE 10 MG/1 ML INJ IV PRN (12:28)
[2020-10-20] MEDS ORDERED: LIDOCAINE (2%) 20 MG/1 ML VIAL 20 ML MDV INFILTRATI NR (12:28)
[2020-10-20] MEDS ORDERED: CARBOPROST TROMETHAMINE 250 MCG/1 ML INJ IM PRN (12:28)
[2020-10-20] MEDS ORDERED: ePHEDrine SULFATE 50 MG/1 ML INJ IV PRN (12:28)
[2020-10-20] MEDS ORDERED: miSOPROStol 200 MCG TAB PR PRN (12:28)
[2020-10-20] MEDS ORDERED: TERBUTALINE 1 MG/1 ML INJ SUB-Q PRN (12:28)
[2020-10-20] MEDS ORDERED: NALOXONE 0.4 MG/1 ML INJ IV PRN (12:28)
[2020-10-20] MEDS ORDERED: METHYLERGONOVINE MALEATE 0.2 MG/ML VIAL IM PRN (12:28)
[2020-10-20] MEDS ORDERED: fentaNYL 100 MCG/2 ML INJ IV PRN (12:30)
[2020-10-20] MEDS ORDERED: BUTORPHANOL 2 MG/1 ML INJ IV PRN (12:30)
[2020-10-20] MEDS ORDERED: LACTATED RINGERS 1,000 ML IV SCH ×2 (12:30)
--- NOTE | 2020-10-20 12:53 | Ultrasound Report ---
ULTRASOUND OBSTETRIC COMPLETE INDICATION / CLINICAL INFORMATION: NO HEARTBEAT. TECHNIQUE: Transabdominal doppler to assess for heart tones. COMPARISON: Aug 11, 2020 FINDINGS/IMPRESSION: No heart tones consistent with demise. Signer Name: Payam Majano MD Signed: 10/20/2020 12:49 PM Workstation Name: [id number]
--- NOTE | 2020-10-20 12:56 | History and Physical Report ---
History of Present Illness Date of examination: 10/20/20 (Admitted for IOL 14+ w demise) Date of admission: 10/20/20 11:28 History of present illness: Office was notified yesterday of demise by [facility] Consult report to be faxed over. Repeat US done on admission today demise confirmed. Pt agrees to move forward with IOL. EDC Confirmation: 03/31/2021 Gestational Age: 16w5d by dates Demise @ 14w Past History : 3 Term Births: 0 Premature Births: 0 Living Children: 1 Para: 0 Mult. Births: 0 Prev : 0 Prev. attempt? 0 Aborta: 0 Elect. Ab: 0 Spont. Ab: 1 Ectopics: 0 # 1 Delivery date: 2014 Past Medical History: Reviewed history from 02/14/2013 and no changes required: PCOS Diabetes, Type 2 Hypertension HSV gastroparesis Past Surgical History: Reviewed history from 02/14/2013 and no changes required: negative Past Medical History Anesthesia Complications: negative Anemia: negative Autoimmune Disorder: negative Bleeding Disorder: negative Blood Transfusions: negative Breast Disease: negative Diabetes: negative Heart Disease: negative Hypertension: negative Hepatitis/Liver Disease: negative Kidney Disease/UTI: negative Neurologic/Epilepsy/Migraines: negative Phlebitis/Varicosities: negative Psychiatric: negative Pulmonary Disease/Asthma: negative Thyroid Disease: negative Hospitalizations: negative Surgery (Non-outside solar sales consultant): negative Abnormal PAP: negative ANAY Exposure: negative Infertility: negative Uterine Anomaly: negative Uterine Surgery (not C/S): negative Other Gynecologic Problems: negative Social Hx: Patient is [facility] Infection History Hx of STD: none HIV Risk Eval: low risk Hepatitis B Risk Eval: low risk Personal hx. of genital herpes: no Partner hx. of genital herpes: no Rash, Viral, or Febrile illness since last LMP? no Varicella/Chicken Pox Status: Unknown TB Risk: no Genetic History Congenital Heart Defect: Mom: no Dad: no Suellen Disease: Mom: no Dad: no Thalassemia Mom: no Dad: no Neural Tube Defect Mom: no Dad: no Down's Syndrome Mom: no Dad: no Rajeev-Sachs Mom: no Dad: no Sickle Cell Disease/Trait Mom: no Dad: no Hemophilia Mom: no Dad: no Muscular Dystrophy Mom: no Dad: no Cystic Fibrosis Mom: no Dad: no Mono Chorea Mom: no Dad: no Mental Retardation Mom: no Dad: no Fragile X Mom: no Dad: no Other Genetic/Chromosomal Disorder Mom: no Dad: no Child w/other defect Mom: no Dad: no Enviromental Exposures Enviromental Exposures Reviewed Xray Exposure: no Medication, drug, or alcohol use since LMP: no Chemical/Other Exposure: no Exposure to Cat Liter: no Hx of Parvovirus (Fifth Disease): no Occupational Exposure to Children: none Active Medications: LABETALOL HCL 200 MG ORAL TABLET (LABETALOL HCL) Take 400mg twice daily. PROMETHAZINE HCL 25 MG ORAL TABLET (PROMETHAZINE HCL) Take one tablet as needed for nausea every 6 hours. LABATOLOL () NOVOLIN 70/30 () Current Allergies: No known allergies Past History Past Medical History: hypertension, diabetes Past Surgical History: section - Obstetrical History Expected Date of Delivery: 03/31/21 Actual Gestation: 16 Week(s) 6 Day(s) : 3 Para: 1 (2014 c/s failure to dilate) Hx # Term Pregnancies: 1 Number of Pregnancies: 0 Spontaneous Abortions: 1 Induced : 0 Number of Living Children: 1 Medications and Allergies Allergies Allergy/AdvReac Type Severity Reaction Status Date / Time No Known Allergies Allergy Verified 12/05/14 13:51 Home Medications Medication Instructions Recorded Confirmed Last Taken Type glyBURIDE [Diabeta] 10 mg PO BID #120 tablet 06/14/14 12/05/14 12/05/14 08:00 Rx metFORMIN [Glucophage] 1,000 mg PO BID #120 tablet 06/14/14 12/05/14 12/05/14 08:00 Rx Methyldopa [Aldomet] 250 mg PO QDAY 12/05/14 12/05/14 12/05/14 08:00 History Promethazine /Codeine 5 ml PO Q6H PRN #50 ml 12/05/14 Unknown Rx [Phenergan/Codeine 6.25-10 mg/5 ml] Ondansetron [Zofran Odt] 4 mg PO Q4HR PRN #20 tab.rapdis 07/01/19 Unknown Rx Promethazine [Phenergan TAB] 25 mg PO Q6HR PRN #20 tab 07/01/19 Unknown Rx Butalb/Acetamin/Caff 50-325-40 1 tab PO Q6HR PRN #10 tab 06/13/20 Unknown Rx [Fioricet 50-325-40] Lisinopril/Hydrochlorothiazide 1 each PO QDAY #30 tablet 06/13/20 Unknown Rx [Zestoretic 20-12.5 mg] Active Meds: Active Medications Acetaminophen (Acetaminophen 325 Mg Tab) 650 mg PO Q4H PRN PRN Reason: Pain, Mild (1-3) Butorphanol Tartrate (Butorphanol 2 Mg/1 Ml Inj) 1 mg IV Q2H PRN PRN Reason: Pain, Moderate(4-6) LABOR PAIN Butorphanol Tartrate (Butorphanol 2 Mg/1 Ml Inj) 2 mg IV Q2H PRN PRN Reason: Pain , Severe (7-10) Carboprost Tromethamine (Carboprost Tromethamine 250 Mcg/1 Ml Inj) 250 mcg IM ONCE PRN PRN Reason: Uterine Bleeding Stop: 10/21/20 12:27 Ephedrine Sulfate (Ephedrine Sulfate 50 Mg/1 Ml Inj) 10 mg IV Q2M PRN PRN Reason: Hypotension Fentanyl (Fentanyl 100 Mcg/2 Ml Inj) 100 mcg IV Q2H PRN PRN Reason: Pain,Severe (7-10) LABOR PAIN Lactated Ringer's (Lactated Ringers) 1,000 mls @ 125 mls/hr IV DIRECT BRAYDEN Oxytocin/Sodium Chloride (Pitocin/Ns 30 Unit/500ml) 30 units in 500 mls @ 40 mls/hr IV TITR BRAYDEN; Protocol Labetalol HCl (Labetalol 200 Mg Tab) 400 mg PO BID BRAYDEN Stop: 10/22/20 23:59 Lidocaine (Lidocaine (2%) 20 Mg/1 Ml Vial 20 Ml Mdv) 20 ml INFILTRATI ONCE NR Stop: 10/20/20 23:00 Methylergonovine Maleate (Methylergonovine Maleate 0.2 Mg/Ml Vial) 0.2 mg IM ONCE PRN PRN Reason: Uterine Bleeding Stop: 10/21/20 12:27 Mineral Oil (Mineral Oil 30 Ml Oral Liqd) 30 ml PO QHS PRN PRN Reason: Constipation Misoprostol (Misoprostol 200 Mcg Tab) 800 mcg RI ONCE PRN PRN Reason: Uterine Bleeding Stop: 10/21/20 12:27 Nalbuphine HCl (Nalbuphine 10 Mg/1 Ml Inj) 10 mg IV Q2H PRN PRN Reason: Pain, Moderate (4-6) Naloxone HCl (Naloxone 0.4 Mg/1 Ml Inj) 0.1 mg IV Q2MIN PRN PRN Reason: Res Rate </= 8 or 02 SAT < 92% Ondansetron HCl (Ondansetron 4 Mg/2 Ml Inj) 4 mg IV Q8H PRN PRN Reason: Nausea And Vomiting Oxytocin (Oxytocin 10 Unit/1 Ml Inj) 10 unit IM ONCE PRN PRN Reason: Uterine Bleeding Promethazine HCl (Promethazine 25 Mg Tab) 25 mg PO Q6H PRN PRN Reason: Nausea And Vomiting Terbutaline Sulfate (Terbutaline 1 Mg/1 Ml Inj) 0.25 mg SUB-Q ONCE PRN PRN Reason: Hyperstimulation/Hypertonicity Stop: 10/21/20 12:27 - Vital Signs Vital signs: Vital Signs Pulse BP 83 201/93 10/20/20 11:56 10/20/20 11:56 Temp Pulse Resp BP Pulse Ox 98.8 F 89 18 177/83 100 10/20/20 11:58 10/20/20 12:48 10/20/20 11:58 10/20/20 12:43 10/20/20 12:48 - Physical Exam Breasts: Positive: deferred Cardiovascular: Regular rate, Normal S1, Normal S2 Lungs: Positive: Clear to auscultation Abdomen: Positive: normal appearance, soft, normal bowel sounds. Negative: distention, tenderness Genitourinary (Female): Positive: normal external genitalia Vulva: both: normal Vagina: Positive: normal moisture. Negative: discharge Cervix: Negative: lesion, discharge Uterus: Positive: normal size, normal contour Adnexa: both: normal Anus/Rectum: Positive: normal perianal skin, heme negative. Negative: rectal mass, hemorrhoids Extremities: Deep Tendon Reflex Grade: Normal +2 - Obstetrical FHR: other (demise confirmed by US today) Uterine Contraction Monitor Mode: External Cervical Dilatation: 0 Cervical Effacement Percentage: 30 station: -4 Uterine Contraction Pattern: Absent Results All other labs normal. HBsAg Screen Negative Negative *1 RPR Non Reactive Non Reactive *2 Rubella Antibodies, IgG 2.61 index Immune >0.99 *3 Non-immune <0.90 Equivocal 0.90 - 0.99 Immune >0.99 ABO Grouping O *4 Rh Factor Positive *5 Please note: Prior records for this patient's ABO / Rh type are not available for additional verification. Antibody Screen Negative Negative *6 WBC 5.9 x10E3/uL 3.4-10.8 *7 RBC 4.37 x10E6/uL 3.77-5.28 *8 Hemoglobin [L] 9.9 g/dL 11.1-15.9 *9 Hematocrit [L] 32.0 % 34.0-46.6 *10 MCV [L] 73 fL 79-97 *11 MCH [L] 22.7 pg 26.6-33.0 *12 MCHC [L] 30.9 g/dL 31.5-35.7 *13 RDW 15.4 % 11.7-15.4 *14 Platelets 198 x10E3/uL 150-450 *15 Neutrophils 71 % Not Estab. *16 Lymphs 25 % Not Estab. *17 Monocytes 4 % Not Estab. *18 Eos 0 % Not Estab. *19 Basos 0 % Not Estab. *20 ! Immature Cells <No Reported Value> *21 Neutrophils (Absolute) 4.1 x10E3/uL 1.4-7.0 *22 Lymphs (Absolute) 1.5 x10E3/uL 0.7-3.1 *23 Monocytes(Absolute) 0.2 x10E3/uL 0.1-0.9 *24 Eos (Absolute) 0.0 x10E3/uL 0.0-0.4 *25 Baso (Absolute) 0.0 x10E3/uL 0.0-0.2 *26 ! Immature Granulocytes 0 % Not Estab. *27 ! Immature Grans (Abs) 0.0 x10E3/uL 0.0-0.1 *28 ! NRBC <No Reported Value> *29 Hematology Comments: <No Reported Value> *30 Tests: (2) HB Solu + Rflx Frac ([id number]) Hemoglobin (Hgb) Solubility Negative Negative *31 Tests: (3) HIV Ag/Ab with Reflex ([id number]) HIV Screen 4th Generation wRfx Non Reactive Non Reactive *32 Tests: (4) HCV Antibody reflex to EVARISTO ([id number]) ! HCV Ab <0.1 s/co ratio 0.0-0.9 *33 Tests: (5) Interpretation: ([id number]) ! Interpretation: SPRCS *34 Negative Not infected with HCV, unless recent infection is suspected or other evidence exists to indicate HCV infection. Tests: (6) Urine Culture, Routine ([id number]) Urine Culture, Routine [A] Final report *35 Tests: (7) Result ([id number]) ! Result 1 [A] BETAGB *36 Beta hemolytic Streptococcus, group B Assessment and Plan 35yo with demise @ 16w fetus measures 14w. Sent by [facility]. Pt has CHTN, T2DM insulin, previous c/s, HX of PreE, gastroparesis. Consulted with Dr Pacheco All orders in EMR. - Patient Problems (1) demise before 20 weeks with retention of fetus Onset Date: ~10/20/20 Current Visit: Yes Status: Acute Plan to address problem: Dr Pacheco speaking with pt now. Will move forward with IOL with Cytotec VG. Pt continues to be very upset most questions are @ why. Explained that may not be a question we can answer but will send POC to pathology. Her questions were addressed to the best of our ability. BP continues to be elevated repeat dose of Apresoline 10 ordered (2) HTN (hypertension) Onset Date: ~10/20/20 Current Visit: Yes Status: Acute Qualifiers: Hypertension type: essential hypertension Qualified Code(s): I10 - Essential (primary) hypertension Plan to address problem: Pt has chronic htn Takes Labetalol 400mg BID Did not take her morning dose. Given immediately Also given Apresolin 10mg X one dose BP on arrival 200/130, 180/70 Pt crying and upset @ demise. Taking with family member during our conversation (3) Diabetes Onset Date: ~10/20/20 Current Visit: Yes Status: Acute Qualifiers: Diabetes mellitus type: type 2 Diabetes mellitus care home insulin use: unspecified first front ventilator insulin use status Plan to address problem: Pt has lost 30+ pounds in this . States she has not taken her insulin unless she thinks she needs it. Has not been checking her BS regularly. POC BS ordered SS Insulin ordered Mod dose BS 170 (4) Gastroparesis Onset Date: ~10/20/20 Current Visit: Yes Status: Acute Plan to address problem: pt is being followed by GI
[2020-10-20] MEDS: BUTORPHANOL 2 MG/1 ML INJ IV PRN ×3 (12:59→22:57)
[2020-10-20] MEDS ORDERED: OXYTOCIN DRIP 30 UNITS/500 ML BAG IV SCH (13:00)
[2020-10-20] MEDS ORDERED: miSOPROStol 25 MCG TAB VG SCH (13:00)
[2020-10-20] MEDS ORDERED: DEXTROSE 50% IN WATER (25GM) 50 ML SYRINGE IV PRN (13:14)
[2020-10-20] MEDS ORDERED: INSULIN REGULAR, HUMAN 100 UNITS/1 ML ONE (13:39)
[2020-10-20] MEDS: INSULIN REGULAR, HUMAN 100 UNITS/1 ML SUB-Q SCH (14:00)
[2020-10-20] MEDS ORDERED: hydrALAZINE 20 MG/1 ML INJ IV ONE (14:04)
[2020-10-20 14:44] LABS: Hematocrit 31.4 % (30.3-42.9); Hemoglobin 10.3 gm/dl (10.1-14.3); Mean Corpuscular HGB Conc 33 % (30-34); Mean Corpuscular Volume 71 fl (79-97); Platelet Count 197 K/mm3 (140-440); Red Cell Distribution Width 16.1 % (13.2-15.2)
[2020-10-20 15:05] LABS: Blood Urea Nitrogen 5 mg/dL (7-17); Calcium 8.8 mg/dL (8.4-10.2); Hemolysis Index 6
[2020-10-20 15:08] LABS: BUN/Creatinine Ratio 17
[2020-10-20] MEDS: ONDANSETRON 4 MG/2 ML INJ IV PRN ×2 (15:49→22:43)
--- NOTE | 2020-10-20 18:49 | Event Note ---
Date: 10/20/20 Had a long discussion with patient and her . Both of them understandably distressed with the diagnosis. Attempted to answer many questions that was asked as a could, stress and that etiologies of early loss in and sometimes are very elusive. Discussed the a possible lump information could be obtained from pathology after delivery but again stressed that possible cause may not be found. Patient and her discussed her history of and struggles with her gastroparesis, hypertension and diabetes. Again discussed possibility of those maternal illnesses and increased risk of having miscarriages and demise. Discussed therapy attempting with blood pressure control and glucose control. Discussed the procedure for induction with Cytotec. Answer questions about possible alternative delivery methods and discussed D&E and and Prostin. Discussed the risks of the surgery and that requirement to transfer to a different facility and the need to find a physician with the training to perform a dilatation and extraction. We also discussed the side effects of Prostin versus Cytotec. All questions answered and patient desires to proceed with Cytotec. Patient is complaining of epigastric pain and discomfort that she says she been suffering chronically with a gastroparesis and will discuss about analgesia for both her upper abdominal pain and pain relief doing her induction.
[2020-10-20] MEDS: miSOPROStol 200 MCG TAB VG SCH (20:00)
[2020-10-20] MEDS: FAMOTIDINE 20 MG/2 ML INJ IV SCH (20:00)
[2020-10-20] MEDS ORDERED: miSOPROStol 200 MCG TAB VG SCH (22:00)
[2020-10-20] MEDS ORDERED: FAMOTIDINE 20 MG/2 ML INJ IV SCH (22:00)
[2020-10-20] MEDS ORDERED: MINERAL OIL 30 ML ORAL LIQD PO PRN (22:00)
[2020-10-21] MEDS: miSOPROStol 200 MCG TAB VG SCH ×2 (00:45→04:20)
[2020-10-21] MEDS: BUTORPHANOL 2 MG/1 ML INJ IV PRN ×2 (02:05→04:20)
--- NOTE | 2020-10-21 06:52 | Event Note ---
Date: 10/21/20 Throughout the night patient with elevated bp requiring additional IV meds Most of the night Pain controlled with stadol at aound 0200 RN requested epidural then denied
--- NOTE | 2020-10-21 07:31 | Progress Note ---
Assessment and Plan patient rocking on her hands and knees, and thrashing around in pain. per rn, third IV has been pulled out by patient. pt previously refused epidural but would accept one now. Patient has blood all over her feet (and in multiple places all over the room) from IV sites, she does not have any noticeable bleeding from her vagina. I encouraged patient to get in shower for pain management and to clean the blood off her, she refused. Patient states " you are not being patient with me." Encouraged nurse to place IV so we can give a dose of pain medication and antihypertensive. last b/p on monitor 218/92. Will consult Dr. Connor. - Patient Problems (1) Diabetes Onset Date: ~10/20/20 Current Visit: Yes Status: Acute Qualifiers: Diabetes mellitus type: type 2 Diabetes mellitus medical terminologist insulin use: unspecified intermediate insulin use status (2) demise before 20 weeks with retention of fetus Onset Date: ~10/20/20 Current Visit: Yes Status: Acute (3) Gastroparesis Onset Date: ~10/20/20 Current Visit: Yes Status: Acute (4) HTN (hypertension) Onset Date: ~10/20/20 Current Visit: Yes Status: Acute Qualifiers: Hypertension type: essential hypertension Qualified Code(s): I10 - Essential (primary) hypertension Subjective - Subjective Date of service: 10/21/20 Principal diagnosis: IUFD IOL; CHTN and DM Patient reports: contractions Objective - Vital Signs Vital Signs: Vital Signs - 12hr 10/20/20 10/20/20 10/20/20 19:27 19:28 19:32 Temperature Pulse Rate 86 84 87 Respiratory Rate Blood Pressure 189/91 O2 Sat by Pulse 100 100 Oximetry 10/20/20 10/20/20 10/20/20 19:37 19:42 19:44 Temperature Pulse Rate 86 91 H 93 H Respiratory Rate Blood Pressure 211/106 O2 Sat by Pulse 99 99 Oximetry 10/20/20 10/20/20 10/20/20 19:45 19:47 19:52 Temperature 98.7 F Pulse Rate 88 80 Respiratory Rate Blood Pressure O2 Sat by Pulse 99 100 Oximetry 10/20/20 10/20/20 10/20/20 19:57 19:58 20:00 Temperature Pulse Rate 95 H 82 Respiratory 18 Rate Blood Pressure 163/74 O2 Sat by Pulse 100 Oximetry 10/20/20 10/20/20 10/20/20 20:02 20:07 20:12 Temperature Pulse Rate 88 88 93 H Respiratory Rate Blood Pressure O2 Sat by Pulse 100 100 100 Oximetry 10/20/20 10/20/20 10/20/20 20:13 20:17 20:22 Temperature Pulse Rate 96 H 88 86 Respiratory Rate Blood Pressure 192/96 O2 Sat by Pulse 100 99 Oximetry 10/20/20 10/20/20 10/20/20 20:27 20:28 20:32 Temperature Pulse Rate 79 80 80 Respiratory Rate Blood Pressure 179/79 O2 Sat by Pulse 98 100 Oximetry 10/20/20 10/20/20 10/20/20 20:37 20:42 20:43 Temperature Pulse Rate 74 81 81 Respiratory Rate Blood Pressure 180/130 O2 Sat by Pulse 99 99 Oximetry 10/20/20 10/20/20 10/20/20 20:47 20:52 20:57 Temperature Pulse Rate 92 H 76 85 Respiratory Rate Blood Pressure O2 Sat by Pulse 99 99 99 Oximetry 10/20/20 10/20/20 10/20/20 20:58 21:02 21:07 Temperature Pulse Rate 65 73 71 Respiratory Rate Blood Pressure 191/82 O2 Sat by Pulse 98 99 Oximetry 10/20/20 10/20/20 10/20/20 21:12 21:13 21:17 Temperature Pulse Rate 81 69 69 Respiratory Rate Blood Pressure 164/77 O2 Sat by Pulse 99 99 Oximetry 10/20/20 10/20/20 10/20/20 21:22 21:27 21:28 Temperature Pulse Rate 71 75 71 Respiratory Rate Blood Pressure 170/79 O2 Sat by Pulse 99 99 Oximetry 10/20/20 10/20/20 10/20/20 21:32 21:37 21:42 Temperature Pulse Rate 77 75 67 Respiratory Rate Blood Pressure O2 Sat by Pulse 100 100 97 Oximetry 10/20/20 10/20/20 10/20/20 21:43 21:47 21:52 Temperature Pulse Rate 73 64 70 Respiratory Rate Blood Pressure 176/84 O2 Sat by Pulse 98 98 Oximetry 10/20/20 10/20/20 10/20/20 21:57 21:58 22:02 Temperature Pulse Rate 67 73 72 Respiratory Rate Blood Pressure 173/81 O2 Sat by Pulse 98 98 Oximetry 10/20/20 10/20/20 10/20/20 22:07 22:12 22:13 Temperature Pulse Rate 71 67 69 Respiratory Rate Blood Pressure 174/83 O2 Sat by Pulse 98 100 Oximetry 10/20/20 10/20/20 10/20/20 22:17 22:22 22:27 Temperature Pulse Rate 68 76 75 Respiratory Rate Blood Pressure O2 Sat by Pulse 99 99 99 Oximetry 10/20/20 10/20/20 10/20/20 22:28 22:38 22:57 Temperature Pulse Rate 85 Respiratory 18 Rate Blood Pressure 176/87 176/87 O2 Sat by Pulse Oximetry 10/20/20 10/20/20 10/20/20 23:02 23:28 23:45 Temperature 98.4 F Pulse Rate 78 81 Respiratory Rate Blood Pressure 231/105 185/88 O2 Sat by Pulse Oximetry 10/20/20 10/21/20 10/21/20 23:58 00:29 00:59 Temperature Pulse Rate 86 86 88 Respiratory Rate Blood Pressure 199/117 189/86 206/95 O2 Sat by Pulse Oximetry 10/21/20 10/21/20 10/21/20 01:28 01:45 01:59 Temperature Pulse Rate 99 H 94 H Respiratory Rate Blood Pressure 182/86 182/86 181/86 O2 Sat by Pulse Oximetry 10/21/20 10/21/20 10/21/20 02:29 02:58 03:28 Temperature Pulse Rate 176 H 90 91 H Respiratory Rate Blood Pressure 142/81 182/91 179/85 O2 Sat by Pulse Oximetry 10/21/20 10/21/20 10/21/20 04:00 04:20 04:28 Temperature 98.7 F Pulse Rate 90 93 H Respiratory Rate Blood Pressure 184/93 172/84 O2 Sat by Pulse Oximetry 10/21/20 10/21/20 10/21/20 04:58 05:28 07:00 Temperature Pulse Rate 89 85 104 H Respiratory Rate Blood Pressure 177/81 178/82 218/92 O2 Sat by Pulse Oximetry - Exam Breasts: normal Cardiovascular: Regular rate Lungs: Normal air movement Abdomen: Present: normal appearance, soft Vulva: both: normal Uterus: Present: fundal height at umbilicus Uterine Contraction Pattern: Regular Uterine Tone Measurement Phase: Contraction Uterine Contraction Intensity: Moderate Extremities: normal - Labs Labs: Abnormal Labs 10/20/20 10/20/2010/20/21 13:20 14:26 14:26 MCV 71 L MCH 24 L RDW 16.1 H Sodium 136 L BUN 5 L Creatinine 0.3 L Glucose 182 H POC Glucose 170 H Uric Acid 10/20/20 10/20/20 14:26 18:51 MCV MCH RDW Sodium BUN Creatinine Glucose POC Glucose 134 H Uric Acid 2.6 L Laboratory Results - last 24 hr 10/20/20 10/20/20 10/20/20 13:20 14:20 14:26 WBC 5.3 RBC 4.40 Hgb 10.3 Hct 31.4 MCV 71 L MCH 24 L MCHC 33 RDW 16.1 H Plt Count 197 Sodium Potassium Chloride Carbon Dioxide Anion Gap BUN Creatinine Estimated GFR BUN/Creatinine Ratio Glucose POC Glucose 170 H Uric Acid Calcium Blood Type O POSITIVE Antibody Screen Negative 10/20/20 10/20/20 10/20/20 14:26 14:26 18:51 WBC RBC Hgb Hct MCV MCH MCHC RDW Plt Count Sodium 136 L Potassium 3.6 Chloride 104.4 Carbon Dioxide 24 Anion Gap 11 BUN 5 L Creatinine 0.3 L Estimated GFR > 60 BUN/Creatinine Ratio 17 Glucose 182 H POC Glucose 134 H Uric Acid 2.6 L Calcium 8.8 Blood Type Antibody Screen
[2020-10-21] MEDS ORDERED: hydrALAZINE 20 MG/1 ML INJ IV ONE ×2 (08:00→18:00)
[2020-10-21] MEDS ORDERED: MORPHINE 4 MG/1 ML INJ IV ONE (08:00)
[2020-10-21] MEDS: INSULIN REGULAR, HUMAN 100 UNITS/1 ML SUB-Q SCH (08:54)
--- NOTE | 2020-10-21 09:00 | Procedure Note ---
OB Delivery Note - Delivery Date of Delivery: 10/21/20 Supervisor/Port Director: EMILIA MCINTOSH Estimated blood loss: 300cc - Vaginal Delivery presentation: compound Intrapartum events: other(please specify) ( demise) Delivery induction: misoprostol Delivery monitor: none Delivery placenta: manual (assisted, see event note) Episiotomy: none Delivery laceration: none Anesthesia: epidural Delivery comments: called to room as baby was noted to be in vagina by RN. Patient pushed and delivered nonviable demise. BOW ruptured at delivery. Cord clamp placed on umbilical cord and baby wrapped in blanket and taken to mom. No bleeding noted. Patient in control and tolerated exam after pain medication administered before of baby. Dr. Connor updated on pt's status. waiting on placenta to be delivered. Placenta del @ 1245. see event note. Pt resting w/o complaints at this time. - A at 1 minute: 0 at 5 minutes: 0 Infant Gender: Ambiguous
--- NOTE | 2020-10-21 09:22 | Anesthesia Consultation ---
Anesthesia Consult and Med Hx Date of service: 10/21/20 - Airway Anesthetic Teeth Evaluation: Poor ROM Head & Neck: Adequate Mental/Hyoid Distance: Adequate Mallampati Class: Class II Intubation Access Assessment: Probably Good - Pulmonary Exam CTA: Yes - Cardiac Exam Cardiac Exam: RRR - Pre-Operative Health Status ASA Pre-Surgery Classification: ASA2 Proposed Anesthetic Plan: Epidural - Pre-Anesthesia Comment Pre-Anesthesia Comments: IUFD 17WKS - Pulmonary Hx Smoking: No Hx Asthma: No Hx Respiratory Symptoms: No SOB: No COPD: No Home Oxygen Therapy: No Hx Pneumonia: No Hx Sleep Apnea: No - Cardiovascular System Hx Hypertension: Yes Hx Coronary Artery Disease: No Hx Heart Attack/AMI: No Hx Angina: No Hx Percutaneous Transluminal Coronary Angioplasty (PTCA): No Hx Cardia Arrhythmia: No Hx Pacemaker: No Hx Internal Defibrillator: No Hx Valvular Heart Disease: No Hx Heart Murmur: No Hx Peripheral Vascular Disease: No - Central Nervous System Hx Neuromuscular Disorder: No Hx Seizures: No CVA: No Hx Back Pain: No Hx Psychiatric Problems: No - Gastrointestinal Hx Ulcer: No Hx Gastroesophageal Reflux Disease: Yes (gastroparess) - Endocrine Hx Renal Disease: No Hx End Stage Renal Disease: No Hx Cirrhosis: No Hx Liver Disease: No Hx Insulin Dependent Diabetes: No Hx Non-Insulin Dependent Diabetes: No Hx Thyroid Disease: No Hx Hypothyroidism: No Hx Hyperthyroidism: No - Hematic Hx Anemia: Yes Hx Sickle Cell Disease: No - Other Systems Hx Alcohol Use: No Hx Substance Use: No Hx Cancer: No Hx Obesity: Yes
[2020-10-21] MEDS ORDERED: ePHEDrine SULFATE 50 MG/1 ML INJ IV PRN (10:19)
[2020-10-21] MEDS ORDERED: NALOXONE 2 MG/2 ML INJ IV PRN (10:19)
--- NOTE | 2020-10-21 10:19 | Progress Note ---
Labor Epidural - Labor Epidural Start Time: 09:40 Stop Time: 09:55 Performed by:: NU ALVARADO Procedure: Patient is requesting a epidural for pain. Patient IDed, H&P reviewed, all questions and concerns were answered, and consent was signed. Timeout was performed at bedside. Patient in sitting position. Sterile prep and drape was performed. 3ml of 1% lidocaine skin wheal at L[3]- L [4]. 18-gauge Tuohy epidural needle was advanced to loss of resistance with air technique 6cm. Negative CSF negative blood. Epidural catheter advanced to [10] centimeters. [negative] Aspiration [negative] test dose. Sterile dressing applied. Patient tolerated procedure.
[2020-10-21] MEDS: FAMOTIDINE 20 MG/2 ML INJ IV SCH (10:27)
[2020-10-21] MEDS ORDERED: fentaNYL-BUPIV 2 MCG/ML-0.125% 200 MCG/100 ML BAG EPIDURAL SCH (11:00)
[2020-10-21] MEDS ORDERED: miSOPROStol 200 MCG TAB ONE (12:46)
[2020-10-21] MEDS ORDERED: miSOPROStol 200 MCG TAB PR ONE (12:52)
--- NOTE | 2020-10-21 13:06 | Event Note ---
Date: 10/21/20 Placenta del @ 1245, Placenta noted in cervical os with SVE however cervix was clamped down to 2.5cms. Speculum used to visualize cervix and ring forceps used to gently tease placenta out. Placenta appears to be intact. Lochia scant after placenta, Cytotec 800mg given [place] incase there is any small remnants of placenta retained. Dr. Connor aware, will continue to monitor patient closely.
--- NOTE | 2020-10-21 16:23 | Post Anesthesia Evaluation ---
- Post Anesthesia Evaluation Patient Participated: Yes Airway Patent: Yes Stable Respiratory Function: Yes Nausea/Vomiting: No Temp > 96.8F: Yes Pain Manageable: Yes Adequeate Hydration: Yes Anesthesia Complications: No Block Receding Appropriately: Yes Patient on Ventilator: No
[2020-10-21] MEDS ORDERED: LANOLIN/ZINC/DIMETHICONE (LANSINOH) 7 GM TP PRN (17:33)
[2020-10-21] MEDS ORDERED: diphenhydrAMINE 25 MG CAP PO PRN (17:33)
[2020-10-21] MEDS ORDERED: WITCH HAZEL/ GLYCERIN PAD TP PRN (17:33)
[2020-10-21] MEDS ORDERED: MAGNESIUM HYDROXIDE (MOM) ORAL LIQD UDC PO PRN (17:33)
[2020-10-21] MEDS ORDERED: NIFEdipine XL 30 MG TAB PO ONE (17:52)
[2020-10-21] MEDS ORDERED: hydrALAZINE 20 MG/1 ML INJ ONE (17:52)
[2020-10-21] MEDS ORDERED: IBUPROFEN 600 MG TAB PO SCH (18:00)
[2020-10-21] MEDS ORDERED: IBUPROFEN 800 MG TAB ONE (18:09)
[2020-10-21] MEDS ORDERED: oxyCODONE /ACETAMINOPHEN 5-325MG TAB PO ONE (19:39)
--- NOTE | 2020-10-21 20:20 | Event Note ---
Date: 10/21/20 received call from nurse, patient is rocking in bed c/o pain rated 8/10. She received motrin w/o relief. Orders given for one percocet PO and RN is to explain to patient that she will not be discharged home with narcotic medication. b/p was noted elevated after epidural was d/c'd, Procardia 30mg QD added for additional blood pressure control.
[2020-10-21] MEDS ORDERED: DEXTROSE 50% IN WATER (25GM) 50 ML SYRINGE IV PRN (20:52)
[2020-10-21] MEDS ORDERED: INSULIN REGULAR, HUMAN 100 UNITS/1 ML SUB-Q PRN (20:52)
[2020-10-21] MEDS ORDERED: NIFEdipine XL 30 MG TAB PO SCH (21:00)
[2020-10-21 21:42] LABS: Amphetamine Screen,Urine PRESUMPTIVE POSITIVE; Benzodiazepines Screen,Urine PRESUMPTIVE NEGATIVE; Cannabinoid Screen,Urine PRESUMPTIVE POSITIVE; Cocaine Screen,Urine PRESUMPTIVE NEGATIVE; Methadone Screen,Urine PRESUMPTIVE NEGATIVE; Opiate Screen,Urine PRESUMPTIVE NEGATIVE
[2020-10-21] MEDS ORDERED: FERROUS SULFATE 325 MG TAB PO SCH (22:00)
--- NOTE | 2020-10-21 22:07 | Event Note ---
Date: 10/21/20 UDS reviewed + Amphetamine and + THC. Case management consult placed on chart to see in AM prior to going home.
[2020-10-22] MEDS: IBUPROFEN 800 MG TAB PO SCH ×2 (01:06→10:43)
[2020-10-22 03:10] LABS: Hematocrit 27.7 % (30.3-42.9); Hemoglobin 9.1 gm/dl (10.1-14.3)
[2020-10-22] MEDS ORDERED: INSULIN REGULAR, HUMAN 100 UNITS/1 ML SUB-Q PRN (07:05)
--- NOTE | 2020-10-22 07:30 | Discharge Summary ---
Providers - Providers Date of Admission: 10/20/20 11:28 Date of discharge: 10/22/20 (pt req d/c today if possible) Attending physician: IVORY FRANK 10/21/20 22:04 Consult to Case Management [CONS] Routine Services Needed at Discharge: Senior Writer Additional Physician Instructions: s/p delivery second trimester IUFD. + Amphetamines and + THC on UDS. pt has child she cares for at home. Primary care physician: LETY BARKER Hospitalization Reason for admission: IUP - , IUFD Delivery: Episiotomy: none Laceration: none Other procedures: none complications: none Discharge diagnosis: other (demise) [place] baby: female (demise) Hospital course: of 15 week demise Pt awake no voiced c/o pain. Desires d/c today. BP 150-130/90-80 Procardia not given yesterday to be given this AM. Continue Labetalol 400mg po BID. Pt will f/u with PCP and merchandise pickup/receiving associate for HTN mgt and diabetes control. A1c that was ordered @ 0200 has not been resulted Lab to CB with result. D/C instructions given F/U 2 weeks We did review BC, nonhormonal. If is desired pt needs to be in optimal health and both htn and BS be in good control. Disposition of fetus undecided at time of my rounds.. Condition at discharge: Good Disposition: DC-01 TO HOME OR SELFCARE - Discharge Diagnoses (1) HTN (hypertension) Status: Acute Qualifiers: Hypertension type: essential hypertension Qualified Code(s): I10 - Essential (primary) hypertension Comment: continue Labetalol 400mg BID Call PCP and f/u tomorrow (2) Diabetes Status: Acute Qualifiers: Diabetes mellitus type: type 2 Diabetes mellitus terminal operator insulin use: unspecified residential insulin use status Comment: see merchandise pickup/receiving associate within 1 week (3) Gastroparesis Status: Acute Comment: f/u with GI (4) demise, less than 22 weeks, delivered, current hospitalization Status: Acute Comment: F/U in office in 2 weeks Plan - Discharge Medications Prescriptions: labetaloL [Labetalol 200mg TAB] 400 mg PO BID #90 tablet - Provider Discharge Summary Activity: routine, no sex for 6 weeks, no heavy lifting 4 weeks, no strenuous exercise Diet: routine Instructions: routine Additional instructions: [] Smoking cessation referral if applicable(refer to patient education folder for contact #) [] Refer to [facility] Booklet Call your doctor immediately for: * Fever > 100.5 * Heavy vaginal bleeding ( >1 pad per hour) * Severe persistent headache * Shortness of breath * Reddened, hot, painful area to leg or breast * Drainage or odor from incision. * Keep incision clean and dry at all times and follow doctor's instructions regarding bathing/showering - Follow up plan Follow up: LETY BARKER MD [Primary Care Provider] - 14 Days (Call and schedule appointment in 2 weeks. Take medications as prescribed. Call with any concerns.)
[2020-10-22] MEDS ORDERED: FLU VACC QUAD 2020-2021 (6 months +)/PF 60 0.5 ML SYRINGE IM ONE (16:00)
[2020-10-22] MEDS ORDERED: DIPHtheria,PERTUSSIS(ACELL),TETANUS VACCINE/PF 0.5 ML VIAL IM ONE (16:00)
[2020-10-22 16:38] VITALS: BP 131/56
== END 2020-10-22 15:40 | disposition home or self-care (01) | DRG 805 ==
LOC: LD 11:28 → OB 10-21 17:18
PROVIDERS: ADMIT Obstetrics & Gynecology; ATTEND Obstetrics & Gynecology
PROC: 3E0P7VZ Introduction of Hormone into Female Reproductive, Via Natural or Artificial Opening (ICD-10-PCS; principal; 2020-10-21)
PROC: 10E0XZZ Delivery of Products of Conception, External Approach (ICD-10-PCS; 2020-10-21)
PROC: 3E0234Z Introduction of Serum, Toxoid and Vaccine into Muscle, Percutaneous Approach (ICD-10-PCS; 2020-10-21)
PROC: 3E0R3BZ Introduction of Anesthetic Agent into Spinal Canal, Percutaneous Approach (ICD-10-PCS; 2020-10-21)
PROC: 00HU33Z Insertion of Infusion Device into Spinal Canal, Percutaneous Approach (ICD-10-PCS; 2020-10-21)
DX: O02.1 Missed abortion (principal); O24.12 Pre-existing type 2 diabetes mellitus, in childbirth; Z37.0 Single live birth; O10.92 Unspecified pre-existing hypertension complicating childbirth; Z20.822 Contact with and (suspected) exposure to COVID-19; E11.43 Type 2 diabetes mellitus with diabetic autonomic (poly)neuropathy; K31.84 Gastroparesis; Z79.4 Long term (current) use of insulin; Z3A.16 16 weeks gestation of pregnancy; Z23 Encounter for immunization; Z37.1 Single stillbirth
CPT/HCPCS: 36415; 76815; 80048; 80307; 82565; 82962; 83036; 84550; 85014; 85018; 85027; 86850; 86900; 86901; 88305; G0378; J0360; J0595; J1815; J2270; J2405; J2590; J7120; U0003

== ENCOUNTER 2020-10-26 15:20 | Emergency (ER) | payer BC, MEDICAID ==
[2020-10-26] MEDS ORDERED: ONDANSETRON 4 MG ODT TAB PO/SL ONE (16:49)
[2020-10-26] MEDS ORDERED: FAMOTIDINE 20 MG TAB PO ONE (16:51)
[2020-10-26 16:53] VITALS: BP 211/95
--- NOTE | 2020-10-26 17:32 | Emergency Department Report ---
Blank Doc - Documentation Documentation: 35-year-old F [place] female 1 week status post still berm both with past no history of diabetes with reported possible gastroparesis although she is reluctant to admit presents emergency department complaining of 3 to 4 days of cyclic vomiting associated with bright red blood and occasional diarrhea with scant blood as well. Associated with abdominal pain which is diffuse. This initial assessment/diagnostic orders/clinical plan/treatment(s) is/are subject to change based on patients health status, clinical progression and re- assessment by fellow clinical providers in the ED. Further treatment and workup at subsequent clinical providers discretion. Patient/guardian urged not to elope from the ED as their condition may be serious if not clinically assessed and managed. Initial orders include: Labs, CT and IV
[2020-10-26 17:34] LABS: Basophils % (Auto) 0.5 % (0.0-1.8); Hematocrit 28.5 % (30.3-42.9); Hemoglobin 9.6 gm/dl (10.1-14.3); Lymphocytes % (Auto) 12.2 % (13.4-35.0); Mean Corpuscular HGB Conc 34 % (30-34); Mean Corpuscular Volume 72 fl (79-97); Monocytes # (Auto) 0.2 K/mm3 (0.0-0.8); Monocytes % (Auto) 1.8 % (0.0-7.3); Platelet Count 141 K/mm3 (140-440); Red Blood Count 3.97 M/mm3 (3.65-5.03); Red Cell Distribution Width 16.1 % (13.2-15.2)
[2020-10-26 17:49] LABS: Alanine Aminotransferase 7 units/L (7-56); Albumin 4.3 g/dL (3.9-5); Blood Urea Nitrogen 7 mg/dL (7-17); Calcium 9.4 mg/dL (8.4-10.2); Hemolysis Index 6
[2020-10-26 17:51] LABS: INR 0.91 (0.87-1.13)
[2020-10-26 17:55] LABS: BUN/Creatinine Ratio 18; Bilirubin,Direct < 0.2 mg/dL (0-0.2)
== END 2020-10-27 00:15 | disposition left against medical advice (07) ==
LOC: ED 15:20
DX: R11.2 Nausea with vomiting, unspecified (principal); Z53.21 Procedure and treatment not carried out due to patient leaving prior to being seen by health care provider
CPT/HCPCS: 36415; 80048; 80076; 83690; 85025; 85610

== ENCOUNTER 2021-03-28 02:46 | Emergency (ER) | payer BC, MEDICAID ==
[2021-03-28] MEDS ORDERED: SODIUM CHLORIDE 0.9% 1000 ML 1,000 ML IV ONE (03:53)
[2021-03-28] MEDS ORDERED: METOCLOPRAMIDE 10 MG/2 ML INJ IV STA (03:53)
[2021-03-28] MEDS ORDERED: diphenhydrAMINE 50 MG/ML VIAL IV STA (03:53)
[2021-03-28] MEDS ORDERED: HYOSCYAMINE SUBL 0.125 MG TAB SL ONE (03:53)
--- NOTE | 2021-03-28 04:05 | Emergency Department Report ---
ED General Adult HPI - General Chief complaint: Abdominal Pain Stated complaint: N/V, ABDOMINAL PAIN Time Seen by Provider: 03/28/21 03:53 Source: EMS Mode of arrival: Stretcher Limitations: No Limitations - History of Present Illness Initial comments: 35-year-old -[place] female with a known history of hypertension, diabetes obesity, anemia, acid reflux disease and reported gastroparesis which seems to be triggered by menses and mood changes presents emerged department complaining of a 2 to 3-day history of abdominal pain associated with nausea and vomiting with occasional diarrhea. Reports no hemoptysis no hematemesis hematochezia, no fever, chills, sweats. Ms. Worrell states that usually when she gets in these episodes of requires some Ativan as well as morphine to keep her at the crisis. -: Gradual, month(s) Radiation: non-radiation Quality: aching, dull Consistency: constant Worsens with: none Associated Symptoms: nausea/vomiting. denies: denies other symptoms, chest pain - Related Data Home Medications Medication Instructions Recorded Confirmed Last Taken Methyldopa [Aldomet] 250 mg PO QDAY 12/05/14 10/21/20 12/05/14 08:00 Previous Rx's Medication Instructions Recorded Last Taken Type glyBURIDE [Diabeta] 10 mg PO BID #120 tablet 06/14/14 12/05/14 08:00 Rx metFORMIN [Glucophage] 1,000 mg PO BID #120 tablet 06/14/14 12/05/14 08:00 Rx Promethazine /Codeine 5 ml PO Q6H PRN #50 ml 12/05/14 7 Months Ago Rx [Phenergan/Codeine 6.25-10 mg/5 ml] ~03/21/20 Ondansetron [Zofran Odt] 4 mg PO Q4HR PRN #20 tab.rapdis 07/01/19 10 Months Ago Rx ~12/20/19 Promethazine [Phenergan TAB] 25 mg PO Q6HR PRN #20 tab 07/01/19 8 Months Ago Rx ~02/19/20 Butalb/Acetamin/Caff 50-325-40 1 tab PO Q6HR PRN #10 tab 06/13/20 06/13/20 Rx [Fioricet 50-325-40] Lisinopril/Hydrochlorothiazide 1 each PO QDAY #30 tablet 06/13/20 Unknown Rx [Zestoretic 20-12.5 mg] labetaloL [Labetalol 200mg TAB] 400 mg PO BID #90 tablet 10/22/20 Unknown Rx Hyoscyamine Subl [Levsin Sl 0.125 0.125 mg SL Q4HR PRN #20 tablet 03/28/21 Unknown Rx TAB] Ondansetron (Nf) [Zofran TAB] 8 mg PO Q8HR PRN #14 tablet 03/28/21 Unknown Rx Allergies Allergy/AdvReac Type Severity Reaction Status Date / Time No Known Allergies Allergy Verified 12/05/14 13:51 ED Review of Systems ROS: Stated complaint: N/V, ABDOMINAL PAIN Other details as noted in HPI Comment: All other systems reviewed and negative ED Past Medical Hx - Past Medical History Hx Hypertension: Yes Hx Heart Attack/AMI: No Hx Congestive Heart Failure: No Hx Diabetes: Yes Hx Deep Vein Thrombosis: No Hx Liver Disease: No Hx Renal Disease: No Hx Sickle Cell Disease: No Hx Seizures: No Hx Asthma: No Hx COPD: No Hx HIV: No Additional medical history: PCOS - Surgical History Hx Pacemaker: No Hx Internal Defibrillator: No Additional Surgical History: tonsillectomy - Social History Smoking Status: Never Smoker - Medications Home Medications: Home Medications Medication Instructions Recorded Confirmed Last Taken Type glyBURIDE [Diabeta] 10 mg PO BID #120 tablet 06/14/14 10/21/20 12/05/14 08:00 Rx metFORMIN [Glucophage] 1,000 mg PO BID #120 tablet 06/14/14 10/21/20 12/05/14 08:00 Rx Methyldopa [Aldomet] 250 mg PO QDAY 12/05/14 10/21/20 12/05/14 08:00 History Promethazine /Codeine 5 ml PO Q6H PRN #50 ml 12/05/14 10/21/20 7 Months Ago Rx [Phenergan/Codeine 6.25-10 mg/5 ml] ~03/21/20 Ondansetron [Zofran Odt] 4 mg PO Q4HR PRN #20 tab.rapdis 07/01/19 10/21/20 10 Months Ago Rx ~12/20/19 Promethazine [Phenergan TAB] 25 mg PO Q6HR PRN #20 tab 07/01/19 10/21/20 8 Months Ago Rx ~02/19/20 Butalb/Acetamin/Caff 50-325-40 1 tab PO Q6HR PRN #10 tab 06/13/20 10/21/20 06/13/20 Rx [Fioricet 50-325-40] Lisinopril/Hydrochlorothiazide 1 each PO QDAY #30 tablet 06/13/20 10/21/20 Unknown Rx [Zestoretic 20-12.5 mg] labetaloL [Labetalol 200mg TAB] 400 mg PO BID #90 tablet 10/22/20 Unknown Rx Hyoscyamine Subl [Levsin Sl 0.125 0.125 mg SL Q4HR PRN #20 tablet 03/28/21 Unknown Rx TAB] Ondansetron (Nf) [Zofran TAB] 8 mg PO Q8HR PRN #14 tablet 03/28/21 Unknown Rx ED Physical Exam - General Limitations: No Limitations General appearance: alert, other (Patient is very vocal maneuvering all around there not being very cooperative requesting for pain medication) - Head Head exam: Present: atraumatic, normocephalic - Eye Eye exam: Present: normal appearance - ENT ENT exam: Present: mucous membranes moist - Neck Neck exam: Present: normal inspection - Respiratory Respiratory exam: Present: normal lung sounds bilaterally. Absent: respiratory distress - Cardiovascular Cardiovascular Exam: Present: regular rate, normal rhythm. Absent: systolic murmur, diastolic murmur, rubs, gallop - GI/Abdominal GI/Abdominal exam: Present: soft, normal bowel sounds, other (Positive bowel sounds). Absent: guarding, rebound, rigid, organomegaly, mass, bruit, pulsatile mass - Extremities Exam Extremities exam: Present: normal inspection - Back Exam Back exam: Present: normal inspection - Neurological Exam Neurological exam: Present: alert, oriented X3 - Psychiatric Psychiatric exam: Present: normal affect, normal mood - Skin Skin exam: Present: warm, dry, intact, normal color. Absent: rash ED Course Vital Signs 03/28/21 03/28/21 03/28/21 03:09 04:15 04:45 Temperature 98.2 F Pulse Rate 107 H Respiratory 17 18 18 Rate Blood Pressure 146/121 [Left] O2 Sat by Pulse 99 Oximetry 03/28/21 05:20 Temperature Pulse Rate Respiratory 18 Rate Blood Pressure [Left] O2 Sat by Pulse Oximetry ED Medical Decision Making - Lab Data Result diagrams: 03/28/21 04:21 03/28/21 04:21 Lab Results 03/28/21 03/28/21 03/28/21 Range/Units 03:21 04:21 04:21 WBC 11.0 (4.5-11.0) K/mm3 RBC 4.88 (3.65-5.03) M/mm3 Hgb 11.3 (10.1-14.3) gm/dl Hct 35.3 (30.3-42.9) % MCV 72 L (79-97) fl MCH 23 L (28-32) pg MCHC 32 (30-34) % RDW 17.1 H (13.2-15.2) % Plt Count 230 (140-440) K/mm3 Sodium 139 (137-145) mmol/L Potassium 3.5 L (3.6-5.0) mmol/L Chloride 99.9 (98-107) mmol/L Carbon Dioxide 26 (22-30) mmol/L Anion Gap 17 mmol/L BUN 10 (7-17) mg/dL Creatinine 0.5 L (0.6-1.2) mg/dL Estimated GFR > 60 ml/min BUN/Creatinine Ratio 20 % Glucose 220 H (65-100) mg/dL POC Glucose 238 H (70-105) mg/dL Calcium 9.4 (8.4-10.2) mg/dL Total Bilirubin 0.90 (0.1-1.2) mg/dL AST 12 (5-40) units/L ALT 10 (7-56) units/L Alkaline Phosphatase 85 (35-129) units/L Total Protein 7.6 (6.3-8.2) g/dL Albumin 4.7 (3.9-5) g/dL Albumin/Globulin Ratio 1.6 % Lipase 12 L (13-60) units/L HCG, Qual (Negative) 03/28/21 Range/Units 04:21 WBC (4.5-11.0) K/mm3 RBC (3.65-5.03) M/mm3 Hgb (10.1-14.3) gm/dl Hct (30.3-42.9) % MCV (79-97) fl MCH (28-32) pg MCHC (30-34) % RDW (13.2-15.2) % Plt Count (140-440) K/mm3 Sodium (137-145) mmol/L Potassium (3.6-5.0) mmol/L Chloride (98-107) mmol/L Carbon Dioxide (22-30) mmol/L Anion Gap mmol/L BUN (7-17) mg/dL Creatinine (0.6-1.2) mg/dL Estimated GFR ml/min BUN/Creatinine Ratio % Glucose (65-100) mg/dL POC Glucose (70-105) mg/dL Calcium (8.4-10.2) mg/dL Total Bilirubin (0.1-1.2) mg/dL AST (5-40) units/L ALT (7-56) units/L Alkaline Phosphatase (35-129) units/L Total Protein (6.3-8.2) g/dL Albumin (3.9-5) g/dL Albumin/Globulin Ratio % Lipase (13-60) units/L HCG, Qual Negative (Negative) - Medical Decision Making Problem 1 abdominal pain This patient presents with abdominal pain of unclear etiology. Their evaluation has not identified a emergent etiology for the abdominal pain. Specifically, given the very benign exam, normal laboratory studies, and lack of significant risk factors, I have a very low suspicion for appendicitis, ischemic bowel, bowel perforation, or any other life threatening disease. I have discussed with the patient the level of uncertainty with undifferentiated abdominal pain and clearly explained the need to follow-up as noted on the discharge instructions, or return to the Emergency Department immediately if the pain worsens, develops fever, persistent and uncontrollable vomiting, or for any new symptoms or concerns. I discussed with the patient that this presentation today for abdominal pain could represent a significant risk for an acute abdominal process. Although the tests in the ED were essentially normal, there is still a possibility of a process such as appendicitis, diverticulitis, cholecystitis, ulcer, early bowel obstruction, mesenteric ischemia, kidney stone, or even kidney infection which could subsequently cause disability or . The patient understands that they must return within 24 hours for a recheck or see their physician within 24 hours for re-exam due to the possibility of significant surgical or medical process. Problem 2 nausea vomiting The cause of the patient symptoms not clear but the patient is overall well- appearing and suspected to have a transient course of illness. Given the course and examination does not appear to be an emergent cause of the symptoms such as small bowel obstruction, coronary syndrome, bowel ischemia, DKA, pancreatitis, appendicitis, other acute abdomen or other emergent problem. Patient was provided with morphine and Haldol and which appeared to stabilize her her symptoms she was also provided with fluids, Benadryl, Reglan, Levsin. She been in and advised in importance of following up with the the label press operator and her primary care provider listed patient does report having a GI doc Reassessment after treatment the patient is feeling much much better tolerating p.o. fluids and shows no signs of any dehydration. Disposition discharge home with prompt primary care physician follow-up in the next 24 hours strict return precautions were discussed Critical care attestation.: If time is entered above; I have spent that time in minutes in the direct care of this critically ill patient, excluding procedure time. ED Disposition Clinical Impression: Gastroparesis, Nausea & vomiting Disposition: - TO HOME OR SELFCARE Is pt being admited?: No Does the pt Need Aspirin: No Condition: Stable Instructions: Nausea, Adult, Nausea and Vomiting, Adult, Gastroparesis, Abdominal Pain (ED) Prescriptions: Hyoscyamine Subl [Levsin Sl 0.125 TAB] 0.125 mg SL Q4HR PRN #20 tablet PRN Reason: Spasms Ondansetron (Nf) [Zofran TAB] 8 mg PO Q8HR PRN #14 tablet PRN Reason: [place] vomit Referrals: [facility] [Provider Group] - 3-5 Days THALIA WILSON MD [Staff Physician] - 3-5 Days PRIMARY MD REJI [Primary Care Provider] - 3-5 Days
[2021-03-28] MEDS ORDERED: MORPHINE 4 MG/1 ML INJ IV ONE ×2 (04:09→05:16)
[2021-03-28] MEDS ORDERED: HALOPERIDOL LACTATE 5 MG/1 ML INJ IV ONE (04:09)
[2021-03-28 05:14] LABS: Hematocrit 35.3 % (30.3-42.9); Hemoglobin 11.3 gm/dl (10.1-14.3); Mean Corpuscular HGB Conc 32 % (30-34); Mean Corpuscular Volume 72 fl (79-97); Platelet Count 230 K/mm3 (140-440); Red Blood Count 4.88 M/mm3 (3.65-5.03); Red Cell Distribution Width 17.1 % (13.2-15.2)
[2021-03-28 05:31] LABS: Alanine Aminotransferase 10 units/L (7-56); Albumin 4.7 g/dL (3.9-5); BUN/Creatinine Ratio 20; Blood Urea Nitrogen 10 mg/dL (7-17); Calcium 9.4 mg/dL (8.4-10.2); Hemolysis Index 2
[2021-03-28] MEDS ORDERED: KETOROLAC 30 MG/1 ML INJ IV ONE (07:56)
[2021-03-28] MEDS ORDERED: cloNIDine 0.2 MG TAB ONE (08:21)
[2021-03-28] MEDS ORDERED: cloNIDine 0.2 MG TAB PO ONE (08:22)
[2021-03-28 10:50] VITALS: BP 127/70
== END 2021-03-28 10:03 | disposition home or self-care (01) ==
LOC: ED 02:46
DX: E11.43 Type 2 diabetes mellitus with diabetic autonomic (poly)neuropathy (principal); K31.84 Gastroparesis; R11.2 Nausea with vomiting, unspecified; I10 Essential (primary) hypertension; Z90.49 Acquired absence of other specified parts of digestive tract; Z79.899 Other long term (current) drug therapy
CPT/HCPCS: 36415; 80053; 82962; 83690; 84703; 85027; 96361; 96374; 96375; 96376; 99284; J1200; J1630; J1885; J2270; J2765; J7030

== ENCOUNTER 2021-05-02 00:43 | Emergency (ER) | payer MEDICAID | END 2021-05-02 02:00 | LOC: ED 00:43 | DX: R07.89 Other chest pain (principal); Z53.21 Procedure and treatment not carried out due to patient leaving prior to being seen by health care provider ==